=== PATIENT | male | born 1970 | race Caucasian/White ===

== ENCOUNTER 2023-06-29 18:41 | Inpatient (IN) | payer SELFPAY ==
[~2023-06-29] VITALS: Ht 185.4 cm; Wt 91.6 kg
[~2023-06-29 18:41] MED LIST: ALLP100T PO; GLYB1.253 PO; LISI1TAB6 PO; TRM50T PO
--- NOTE | 2023-06-29 19:08 | ED General ---
General Chief Complaint: General Problems/Pain Stated Complaint: PASSED OUT THIS AM, SUFFERING FROM PNEUMONIA Source of Information: Patient (PT IS LIMITED HISTORIAN), Other (COUSIN ( ARIN NEWBERRY, RN) ) History of Present Illness Date Seen by Provider: Jun 29, 2023 Time Seen by Provider: 18:53 Initial Comments PT ARRIVES VIA POV FROM HOME WITH BROTHER AND COUSIN PT BEGAN HAVING SHORTNESS OF BREATH ABOUT 3 WEEKS AGO HE WAS DX WITH PNEUMONIA AND STARTED ON LEVAQUIN 06/27/23. RX CALLED IN FOR FLAGYL YESTERDAY PT HAS HAD INCREASED INTAKE OVER THE LAST 3 WEEKS BECAUSE HE JUST HAS NOT BEEN FEELING WELL NO FEVER/SWEATS/CHILLS HAS HAD A NON-PRODUCTIVE COUGH OCCASIONALLY HAS VOMITED DUE TO COUGH NO CHEST PAIN OR PAIN WITH BREATHING SOME TIME VERY EARLY THIS MORNING ( WAS STILL DARK OUTSIDE) PT WAS IN THE SHOWER AND FELL OR PASSED OUT, HITTING HIS HEAD--HE DOES NOT RECALL ALL OF THE EVENT BUT WOKE UP ON THE FLOOR OF THE SHOWER. C/O PAIN TO HIS HEAD LEFT SHOULDER WAS HURTING, BUT NOT NOW NO NECK OR BACK PAIN NO HIP OR LEG PAIN NO DIZZINESS NO NAUSEA/VOMITING NO PARESTHESIAS OR MOTOR DEFICITS--STATES THIS BOTTOM OF HIS FEET ALWAYS FEEL TINGLY NO VISION CHANGES PT IS INSULIN DEPENDENT DIABETIC AND HAS HTN AND HX OF GOUT HAS CONTINUOUS GLUCOSE MONITOR AND BLOOD SUGARS HAVE BEEN IN 130'S-200 NORMALLY. PT IS NOT ON ASPIRIN OR BLOOD THINNER PT IS NON-SMOKER, OCCASIONALLY DRINKS ALCOHOL--NONE FOR 3 WEEKS, AND NO DRUG USE PCP: DR. MANN, HAS ALSO BEEN TO [facility] Allergies and Home Medications Allergies Coded Allergies: NKANo Known Allergies (Verified Allergy, Unknown, 01/19/06) Patient Home Medication List Home Medication List Reviewed: Yes Allopurinol (Zyloprim) 100 Mg Tab, 100 MG PO DAILY, (Reported) Entered as Reported by: NICK MCKINNON on 07/11/111309 Glyburide (Glyburide) 1.25 Mg Tablet, 1 EACH PO DAILY, (Reported) Entered as Reported by: NICK MCKINNON on 07/11/11 131 Hctz/Lisinopril (Lisinopril-Hctz 10-12.5 Mg Tab) 1 Each Tablet, 1 EACH PO DAILY, (Reported) Entered as Reported by: NICK MCKINNON on 07/11/11 1310 Tramadol Hcl (Ultram) 50 Mg Tab, 1-2 TAB PO Q8HR PRN, (Reported) Entered as Reported by: NICK MCKINNON on 07/11/11 131 Review of Systems Review of Systems Constitutional: no symptoms reported EENTM: no symptoms reported Respiratory: see HPI Cardiovascular: see HPI Gastrointestinal: no symptoms reported Genitourinary: no symptoms reported Musculoskeletal: no symptoms reported Skin: no symptoms reported Psychiatric/Neurological: See HPI Hematologic/Lymphatic: No Symptoms Reported Immunological/Allergic: no symptoms reported Past Ftjgpom-Xvlzom-Nkexoe Hx Patient Social History Tobacco Use?: No Substance use?: No Alcohol Use?: Yes Alcohol Frequency: Once in a while Past Medical History Surgeries: Yes Tonsillectomy Respiratory: No Cardiac: Yes Hypertension Neurological: No Reproductive Disorders: No Genitourinary: No Gastrointestinal: No Musculoskeletal: Yes Gout Endocrine: No HEENT: No Cancer: No Psychosocial: No Integumentary: No Blood Disorders: No Physical Exam Vital Signs Vital Signs - First Documented 06/29/23 18:53 Temp 36.8 Pulse 116 Resp 16 B/P (MAP) 185/114 (137) Pulse Ox 100 O2 Delivery OxyMask Capillary Refill : Height, Weight, BMI Height: '" Weight: lbs. oz. kg; BMI Method: General Appearance: No Apparent Distress, WD/WN, Other (DOES NOT APPEAR ILL OR TO BE IN ANY DISCOMFORT OR DISTRESS. TALKS IN FULL SENTENCES --VERY PLEASANT AND TALKATIVE. ) Neck: Full Range of Motion, Normal Inspection, Non Tender, Supple Respiratory: Chest Non Tender, No Accessory Muscle Use, No Respiratory Distress, Rales (IN RIGHT BASE) Cardiovascular: No Edema, No JVD, Tachycardia Gastrointestinal: Non Tender, Soft Back: No CVA Tenderness Extremity: Normal Capillary Refill, Normal Inspection, Normal Range of Motion, Non Tender, No Calf Tenderness, Pedal Edema (1+ BILATERALLY) Neurologic/Psychiatric: Alert, Oriented x3, No Motor/Sensory Deficits, Normal Mood/Affect, torch straightener and heater II-XII Norm as Tested Skin: Normal Color, Warm/Dry Focused Exam Sepsis Stage: Sepsis Possible Source: Pulmonary Lactate Level 06/29/23 19:14: Lactic Acid Level 1.45 Time of Focused Exam: 20:45 Respiratory: No Accessory Muscle Use, No Respiratory Distress, Rales (RIGHT BASE) Cardiovascular: No JVD, Tachycardia Capillary Refill: Less Than 3 Seconds Skin: normal color, warm/dry Lactic Acid Level Laboratory Tests Test 06/29/23 19:14 Lactic Acid Level 1.45 MMOL/L (0.50-2.00) Within 3hrs of presentation: Admin fluids, Admin ABX, Blood cultures prior to ABX's, Focus exam, Lactate level Progress/Results/Core Measures Suspected Sepsis SIRS Temperature: Pulse: Respiratory Rate: Laboratory Tests 06/29/23 19:05: White Blood Count 13.3H Blood Pressure / Mean: 06/29/23 19:14: Lactic Acid Level 1.45 Laboratory Tests 06/29/23 19:05: Creatinine 0.82, INR Comment 1.2, Platelet Count 463H, Total Bilirubin 0.3 Results/Orders Lab Results Laboratory Tests Test 06/29/23 19:05 06/29/23 19:13 06/29/23 19:14 06/29/23 20:30 Range/Units White Blood Count 13.3 H 4.3-11.0 10^3/uL Red Blood Count 3.70 L 4.30-5.52 10^6/uL Hemoglobin 9.8 L 13.3-17.7 g/dL Hematocrit 33 L 40-54 % Mean Corpuscular Volume 89 80-99 fL Mean Corpuscular Hemoglobin 27 25-34 pg Mean Corpuscular Hemoglobin Concent 30 L 32-36 g/dL Red Cell Distribution Width 14.7 H 10.0-14.5 % Platelet Count 463 H 130-400 10^3/uL Mean Platelet Volume 8.3 L 9.0-12.2 fL Immature Granulocyte % (Auto) 1 % Neutrophils (%) (Auto) 71 42-75 % Lymphocytes (%) (Auto) 18 12-44 % Monocytes (%) (Auto) 7 0-12 % Eosinophils (%) (Auto) 3 0-10 % Basophils (%) (Auto) 0 0-10 % Neutrophils # (Auto) 9.5 H 1.8-7.8 10^3/uL Lymphocytes # (Auto) 2.4 1.0-4.0 10^3/uL Monocytes # (Auto) 0.9 0.0-1.0 10^3/uL Eosinophils # (Auto) 0.4 H 0.0-0.3 10^3/uL Basophils # (Auto) 0.1 0.0-0.1 10^3/uL Immature Granulocyte # (Auto) 0.1 0.0-0.1 10^3/uL Erythrocyte Sedimentation Rate 107 H 0-30 MM/HR Prothrombin Time 14.9 H 12.2-14.7 SEC INR Comment 1.2 0.8-1.4 Activated Partial Thromboplast Time 43 H 24-35 SEC D-Dimer 2.67 H 0.00-0.49 UG/ML Venous Blood pH 7.37 7.31-7.41 Venous Blood Partial Pressure CO2 46 40-52 MMHG Venous Blood HCO3 26 22-28 MMOL/L Sodium Level 139 135-145 MMOL/L Potassium Level 3.8 3.6-5.0 MMOL/L Chloride Level 106 98-107 MMOL/L Carbon Dioxide Level 23 21-32 MMOL/L Anion Gap 10 5-14 MMOL/L Blood Urea Nitrogen 11 7-18 MG/DL Creatinine 0.82 0.60-1.30 MG/DL Estimat Glomerular Filtration Rate 106 BUN/Creatinine Ratio 13 Glucose Level 152 H 70-105 MG/DL Calcium Level 9.5 8.5-10.1 MG/DL Corrected Calcium 10.2 H 8.5-10.1 MG/DL Magnesium Level 2.3 1.6-2.4 MG/DL Total Bilirubin 0.3 0.1-1.0 MG/DL Aspartate Amino Transf (AST/SGOT) 22 5-34 U/L Alanine Aminotransferase (ALT/SGPT) 15 0-55 U/L Alkaline Phosphatase 85 40-136 U/L Total Creatine Kinase 69 30-200 U/L Creatine Kinase MB 1.4 <6.6 NG/ML Myoglobin 49.4 10.0-92.0 NG/ML Troponin I 0.030 H <0.028 NG/ML C-Reactive Protein High Sensitivity 1.46 H 0.00-0.50 MG/DL B-Type Natriuretic Peptide 242.4 H <100.0 PG/ML Total Protein 8.8 H 6.4-8.2 GM/DL Albumin 3.1 L 3.2-4.5 GM/DL Beta-Hydroxybutyrate (Chem panel) 0.03 0.00-0.27 MMOL/L Influenza Type A (RT-PCR) Not Detected Not Detecte Influenza Type B (RT-PCR) Not Detected Not Detecte SARS-CoV-2 RNA (RT-PCR) Not Detected Not Detecte Lactic Acid Level 1.45 0.50-2.00 MMOL/L Urine Color YELLOW Urine Clarity CLEAR Urine pH 7.0 5-9 Urine Specific [employer] 1.020 1.016-1.022 Urine Protein NEGATIVE NEGATIVE Urine Glucose (UA) NEGATIVE NEGATIVE Urine Ketones NEGATIVE NEGATIVE Urine Nitrite NEGATIVE NEGATIVE Urine Bilirubin NEGATIVE NEGATIVE Urine Urobilinogen 0.2 < = 1.0 MG/DL Urine Leukocyte Esterase NEGATIVE NEGATIVE Urine RBC (Auto) NEGATIVE NEGATIVE Urine RBC NONE /HPF Urine WBC RARE /HPF Urine Squamous Epithelial Cells RARE /HPF Urine Crystals NONE /LPF Urine Bacteria TRACE /HPF Urine Casts NONE /LPF Urine Mucus NEGATIVE /LPF Urine Culture Indicated NO My Orders Orders - BLANCHE BLANK DO Ed Iv/Invasive Line Start (06/29/23 19:00) Ekg Tracing (06/29/23:00) O2 (06/29/23:00) Monitor-Rhythm Ecg Trace Only (06/29/23:) Ct Head/Cervical Spine Wo (06/29/23:00) Chest Pa/Lat (2 View) (06/29/23:00) Bnp [place] (06/29/23:00) Cbc With Automated Diff (06/29/23:) Comprehensive Metabolic Panel (06/29/23:00) Creatine Kinase (06/29/23:00) Creatine Kinase Mb (06/29/23:00) Hs C Reactive Protein (06/29/23:00) Fibrin Degradation Products (06/29/23:) Lactic Acid Analyzer (06/29/23:) Magnesium (06/29/23:) Protime With Inr (06/29/23:) Partial Thromboplastin Time (06/29/23:00) Ua Culture If Indicated (06/29/23:) Erythrocyte Sedimentation Rate (06/29/23:00) Myoglobin Serum (06/29/23:00) Troponin I [place] (06/29/23:00) Ct Tre[place] Chest/Noang Abd-Pelv W (06/29/23:00) Venous Blood Gas (9/13/23 19:00) Beta Hydroxybutyrate (06/29/23 19:00) Hemoglobin A1c (06/29/23 19:00) Covid 19 Inhouse Test (06/29/23 19:04) Influenza A And B By Pcr (06/29/23 19:04) Iohexol Injection (Omnipaque 350 Mg/Ml 1 (06/29/23 20:00) Ns (Ivpb) 100 Ml (Sodium Chloride 0.9% 1 (06/29/23 20:00) Meropenem Injection (Meropenem Injecti (06/29/23 20:45) Vancomycin Injection (Vancomycin Injecti (06/29/23 20:45) Ed Admission (Communication) (06/29/23 20:46) Ed Iv/Invasive Line Start (06/29/23 20:46) Ns Iv 1000 Ml (Ns Iv 1000 Ml) (06/29/23 21:00) Medications Given in ED Current Medications Medications Dose Ordered Sig/Mena Route Start Time Stop Time Status Last Admin Dose Admin Meropenem 500 mg/ Sodium Chloride 100 ml @ 200 mls/hr ONCE ONCE IV 06/29/23 20:45 06/29/23 21:14 DC 06/29/23 21:02 200 MLS/HR Vital Signs/I&O 06/29/23 06/29/23 18:53 21:50 Temp 36.8 Pulse 116 105 Resp 16 20 B/P (MAP) 185/114 (137) 167/101 Pulse Ox 100 98 O2 Delivery OxyMask Room Air Capillary Refill : Progress Note : Progress Note VITALS ON ARRIVAL: TEMP 36.8, HR 116, RR 16, BP 185/114, O2 SAT 100% ON ROOM AIR SEPSIS PROTOCOL INITIATED PPE WORN AND PLACED IN ISOLATION ROOM GIVEN: -IV FLUIDS -ANTIBIOTICS LABS: -CBC WITH WBC 13.3, HGB 9.8, PLT 463,000 -CMP WITH NORMAL ELECTROLYTES, GLU 152 -TROPONIN 0.030 -BNP 242 -AMYLASE/LIPASE NORMAL -MG 2.3 -SED RATE 107 -CRP 1.46 -LACTIC ACID 1.45 -BETA HYDROXYBUTYRATE 0.03 -VENOUS BLOOD GAS--PT 7.37, PCO2 46, HCOC 26 -PT 14.9, PTT 43, INR 1.2 -D-DIMER 2.67 -COVID/FLU NEGATIVE -UA CLEAR EKG SHOWS SINUS TACH AND NON-SPECIFIC CHANGES CXR SHOWS PNEUMONIA WITH FLUID COLLECTION CT HEAD/CERVICAL SPINE UNREMARKABLE CT CHEST ANGIOGRAM SHOWS POSSIBLE CAVITATING PNEUMONIA OR EMPYEMA NO DETERIORATION IN PT'S CONDITION NO COUGH NO DYSPNEA NO HYPOXIA NO FEVER DURING ER STAY VITALS STABLE, AFEBRILE DISCUSSED TEST RESULTS, NEED FOR ADMIT AND PT IS AGREEABLE TO PLAN REVIEWED PRIOR RECORDS, INCLUDING ADMIT/H&P/CONSULTS/DISCHARGE SUMMARY, TESTS/PROCEDURES ECG Initial ECG Impression Date: Jun 29, 2023 Initial ECG Impression Time: 19:34 Initial ECG Rate: 103 Initial ECG Rhythm: S.Tach Initial ECG Intervals LA 206 QRS 98 QT/QTC 339/399 Initial ECG Impression: Nonspecific Changes Initial ECG Comparisson: No Previous ECG Available Comment INTERPRETED BY ME Diagnostic Imaging Comments CXR--PER RADIOLOGIST REPORT AT 2107 FINDINGS: An air-fluid level within the right lung is compatible with the cavitary process demonstrated on the prior CT exam. This again is unclear if this is within the lung or the pleural space. There are infiltrates present at the right lung base but the left lung is clear. Heart size is normal. IMPRESSION: Air-fluid level within the right lung that may be within the lung, itself, or within the pleural space. This may reflect a cavitating pneumonia or could be secondary to an empyema. There are pulmonary opacities present at the right base compatible with pneumonia. CT HEAD/CERVICAL SPINE--PER RADIOLOGIST REPORT AT 2057 No comparison available. FINDINGS: CT of the head demonstrates no evidence of an acute intracranial abnormality. There are no findings of intracranial hemorrhage. There is no abnormal extra-axial collection. Morse-white matter differentiations are well-maintained. There are no findings of edema. The basilar cisterns are patent. There is no acute posterior fossa abnormality. The mastoid air cells are clear. The paranasal sinuses demonstrate no air-fluid level. The orbital contents are normal. There is no acute calvarial abnormality. Cervical spine demonstrates advanced multilevel cervical degenerative disc disease. There is multilevel facet arthropathy. Alignment is normal. Craniocervical junction relationships are maintained. The facets are normally aligned. There is no facet joint or disc space widening. There is severe multilevel disc space height loss with multiple endplate spurs but there are no CT findings of an acute cervical spine fracture. The soft tissues of the neck demonstrate no acute process. Lung apices are clear. IMPRESSION: 1. No CT evidence of an acute intracranial abnormality. 2. No calvarial fracture 3. Advanced degenerative disc disease, facet arthropathy and uncovertebral spurring throughout the cervical spine. There are, however, no findings of an acute cervical spine fracture or traumatic malalignment. CT CHEST ANGIOGRAM / ABDOMEN-PELVIS--PER RADIOLOGIST REPORT AT 2115 FINDINGS: There are no CT radiographic findings of a pulmonary artery filling defect or embolism. There is no right ventricular strain. The thoracic aorta demonstrates no finding of aneurysm or dissection. Heart size is normal. There is no pericardial collection. There is a right-sided pleural effusion. There is a gas and air fluid containing lesion within the right lung which lies along the posterior aspect of the lung posterior to the margins of the major fissure. It is difficult to completely determine if this is in the pleural space or within the lung, itself. This could reflect a cavitating region of pneumonia but may be within the pleural space and relate to sequela of an empyema. There is adjacent right lower lobe and posterior right upper lobe airspace consolidation. The left lung appears clear. The liver demonstrates no evidence of a liver laceration or adjacent fluid or blood. The gallbladder is nondistended. There is no biliary dilatation. Pancreas and spleen are normal. There is no perisplenic fluid. There is no adrenal hematoma. There is no renal laceration. There is no bowel obstruction. There is no abnormal bowel thickening. The appendix is normal. There is uncomplicated diverticulosis. There is no free fluid in the pelvis. The urinary bladder is unremarkable. There is no CT finding of an acute fracture. Within the chest, there is no evidence of an acute rib fracture. There is no fracture evident of the sternum or manubrium. There is no glenohumeral joint dislocation or finding of a clavicular or scapular fracture. There is no acute pelvic fracture. There is no hip dislocation. Alignment of the thoracic and lumbar spine is normal. There are features of a diffuse idiopathic skeletal hyperostosis but no acute thoracic or lumbar fracture demonstrated. IMPRESSION: 1. No CT evidence of an acute traumatic injury within the chest, abdomen or pelvis. 2. No finding of pulmonary embolism or acute aortic syndrome. 3. Air-fluid level with a gas and air containing collection within the posterior right lung that is difficult to determine that this is within the lung, itself, or in the pleural space. Considerations include a cavitating pneumonia or possibly sequela of a pleural empyema. There is adjacent airspace consolidation compatible with known pneumonia within the posterior right upper lobe and at the right lung base. 4. No acute process evident in the abdomen or pelvis. Reviewed: Reviewed by Me Departure Communication (Admissions) 2039--SPOKE WITH DR. MCFARLANE, ACCEPTS PT FOR ADMIT. SHE WILL DO ADMIT ORDERS. Impression Primary Impression: Sepsis Additional Impressions: Syncope Closed head injury IDDM (insulin dependent diabetes mellitus) HTN (hypertension) Hx of gout Pneumonia POSSIBLE EMPYEMA Failure of outpatient treatment Disposition: ADMITTED INPATIENT Condition: Stable Admissions Decision to Admit Reason: Admit from ER (General) Decision to Admit/Date: Jun 29, 2023 Time/Decision to Admit Time: 20:40 Departure-Patient Inst. Referrals: EDWIN MANN MD (PCP) Primary Care Physician [facility] (Family) Primary Care Physician BLANCHE BLANK DO Jun 29, 2023 19:07
[2023-06-29 19:14] LABS: BASOPHILS # (AUTO) 0.1 10^3/uL (0.0-0.1); BASOPHILS % (AUTO) 0 % (0-10); EOSINOPHILS # (AUTO) 0.4 10^3/uL (0.0-0.3); EOSINOPHILS % (AUTO) 3 % (0-10); HEMATOCRIT 33 % (40-54); HEMOGLOBIN 9.8 g/dL (13.3-17.7); LYMPHOCYTES # (AUTO) 2.4 10^3/uL (1.0-4.0); LYMPHOCYTES % (AUTO) 18 % (12-44); MEAN CORPUSCULAR HEMOGLOBIN 27 pg (25-34); MEAN CORPUSCULAR HGB CONC 30 g/dL (32-36); MEAN CORPUSCULAR VOLUME 89 fL (80-99); MEAN PLATELET VOLUME 8.3 fL (9.0-12.2); MONOCYTES # (AUTO) 0.9 10^3/uL (0.0-1.0); MONOCYTES % (AUTO) 7 % (0-12); NEUTROPHILS # (AUTO) 9.5 10^3/uL (1.8-7.8); NEUTROPHILS % (AUTO) 71 % (42-75); PLATELET COUNT 463 10^3/uL (130-400); WHITE BLOOD COUNT 13.3 10^3/uL (4.3-11.0)
[2023-06-29 19:30] LABS: INR 1.2 (0.8-1.4); PROTHROMBIN TIME PATIENT 14.9 SEC (12.2-14.7)
[2023-06-29 19:32] LABS: ALBUMIN 3.1 GM/DL (3.2-4.5)
[2023-06-29 19:33] LABS: CALCIUM 9.5 MG/DL (8.5-10.1)
[2023-06-29 19:35] LABS: TOTAL PROTEIN 8.8 GM/DL (6.4-8.2)
[2023-06-29 19:37] LABS: BILIRUBIN,TOTAL 0.3 MG/DL (0.1-1.0)
[2023-06-29 19:38] LABS: CREATININE SERUM 0.82 MG/DL (0.60-1.30)
[2023-06-29 19:41] LABS: MAGNESIUM 2.3 MG/DL (1.6-2.4)
[2023-06-29 19:46] LABS: ERYTHROCYTE SEDIMENTATION RATE 107 MM/HR (0-30)
[2023-06-29 19:49] LABS: CREATINE KINASE MB 1.4 NG/ML (<6.6)
[2023-06-29 20:00] LABS: POTASSIUM 3.8 MMOL/L (3.6-5.0)
[2023-06-29] MEDS ORDERED: IOHEXOL 350 MG/ML 100 ML (OMNIPAQUE 350) VIAL IV ONE (20:00)
[2023-06-29] MEDS ORDERED: NS 100 ML (IVPB) BAG IV ONE (20:00)
[2023-06-29 20:04] LABS: FIBRIN DEGRADATION PRODUCTS 2.67 UG/ML (0.00-0.49)
--- NOTE | 2023-06-29 20:40 | Diagnostic Imaging Report ---
PROCEDURE: CT head and CT cervical spine without contrast. TECHNIQUE: Multiple contiguous axial images were obtained through the brain and cervical spine without the use of intravenous contrast. Sagittal and coronal reformations through the cervical spine were then performed. Auto Exposure Controls were utilized during the CT exam to meet ALARA standards for radiation dose reduction. INDICATION: Syncope. Fall. No comparison available. FINDINGS: CT of the head demonstrates no evidence of an acute intracranial abnormality. There are no findings of intracranial hemorrhage. There is no abnormal extra-axial collection. Morse-white matter differentiations are well-maintained. There are no findings of edema. The basilar cisterns are patent. There is no acute posterior fossa abnormality. The mastoid air cells are clear. The paranasal sinuses demonstrate no air-fluid level. The orbital contents are normal. There is no acute calvarial abnormality. Cervical spine demonstrates advanced multilevel cervical degenerative disc disease. There is multilevel facet arthropathy. Alignment is normal. Craniocervical junction relationships are maintained. The facets are normally aligned. There is no facet joint or disc space widening. There is severe multilevel disc space height loss with multiple endplate spurs but there are no CT findings of an acute cervical spine fracture. The soft tissues of the neck demonstrate no acute process. Lung apices are clear. IMPRESSION: 1. No CT evidence of an acute intracranial abnormality. 2. No calvarial fracture 3. Advanced degenerative disc disease, facet arthropathy and uncovertebral spurring throughout the cervical spine. There are, however, no findings of an acute cervical spine fracture or traumatic malalignment. Dictated by: Dictated on workstation # [id number]
[2023-06-29] MEDS ORDERED: MEROPENEM INJECTION 500 MG in NS (IVPB) 100 ML 100 ML IV ONE (20:45)
[2023-06-29 20:51] LABS: BACTERIA,URINE TRACE /HPF; BILIRUBIN,URINE NEGATIVE (NEGATIVE); CLARITY,URINE CLEAR; COLOR,URINE YELLOW; GLUCOSE, URINE (UA) NEGATIVE (NEGATIVE); KETONES,URINE NEGATIVE (NEGATIVE); LEUKOCYTE ESTERASE ,URINE NEGATIVE (NEGATIVE); NITRITE,URINE NEGATIVE (NEGATIVE); PROTEIN,URINE NEGATIVE (NEGATIVE); SQUAMOUS EPITHELIAL CELL,UR RARE /HPF; WBC,URINE RARE /HPF
[2023-06-29] MEDS ORDERED: NS IV 1000 ML 1,000 ML IV SCH (21:00)
--- NOTE | 2023-06-29 21:05 | Diagnostic Imaging Report ---
INDICATION: Dyspnea. Recent pneumonia. COMPARISON: CT examination from the same day. FINDINGS: An air-fluid level within the right lung is compatible with the cavitary process demonstrated on the prior CT exam. This again is unclear if this is within the lung or the pleural space. There are infiltrates present at the right lung base but the left lung is clear. Heart size is normal. IMPRESSION: Air-fluid level within the right lung that may be within the lung, itself, or within the pleural space. This may reflect a cavitating pneumonia or could be secondary to an empyema. There are pulmonary opacities present at the right base compatible with pneumonia. Dictated by: Dictated on workstation # [id number]
--- NOTE | 2023-06-29 21:13 | Diagnostic Imaging Report ---
INDICATION: Trauma. Syncope. Fall. TECHNIQUE: CTA chest, abdomen and pelvis. Thin axial sections through the chest, abdomen and pelvis are obtained following intravenous contrast bolus. Multiplanar MIP images were reconstructed and reviewed. All CT scans use one or more of the following dose optimizing techniques: automated exposure control, MA and/or KvP adjustment based on patient size and exam type or iterative reconstruction. FINDINGS: There are no CT radiographic findings of a pulmonary artery filling defect or embolism. There is no right ventricular strain. The thoracic aorta demonstrates no finding of aneurysm or dissection. Heart size is normal. There is no pericardial collection. There is a right-sided pleural effusion. There is a gas and air fluid containing lesion within the right lung which lies along the posterior aspect of the lung posterior to the margins of the major fissure. It is difficult to completely determine if this is in the pleural space or within the lung, itself. This could reflect a cavitating region of pneumonia but may be within the pleural space and relate to sequela of an empyema. There is adjacent right lower lobe and posterior right upper lobe airspace consolidation. The left lung appears clear. The liver demonstrates no evidence of a liver laceration or adjacent fluid or blood. The gallbladder is nondistended. There is no biliary dilatation. Pancreas and spleen are normal. There is no perisplenic fluid. There is no adrenal hematoma. There is no renal laceration. There is no bowel obstruction. There is no abnormal bowel thickening. The appendix is normal. There is uncomplicated diverticulosis. There is no free fluid in the pelvis. The urinary bladder is unremarkable. There is no CT finding of an acute fracture. Within the chest, there is no evidence of an acute rib fracture. There is no fracture evident of the sternum or manubrium. There is no glenohumeral joint dislocation or finding of a clavicular or scapular fracture. There is no acute pelvic fracture. There is no hip dislocation. Alignment of the thoracic and lumbar spine is normal. There are features of a diffuse idiopathic skeletal hyperostosis but no acute thoracic or lumbar fracture demonstrated. IMPRESSION: 1. No CT evidence of an acute traumatic injury within the chest, abdomen or pelvis. 2. No finding of pulmonary embolism or acute aortic syndrome. 3. Air-fluid level with a gas and air containing collection within the posterior right lung that is difficult to determine that this is within the lung, itself, or in the pleural space. Considerations include a cavitating pneumonia or possibly sequela of a pleural empyema. There is adjacent airspace consolidation compatible with known pneumonia within the posterior right upper lobe and at the right lung base. 4. No acute process evident in the abdomen or pelvis. Dictated by: Dictated on workstation # [id number]
[2023-06-29] MEDS: VANCOMYCIN INJECTION 1,000 MG in NS (IVPB) 250 ML 250 ML IV SCH ×2 (21:35→22:46)
[2023-06-29 22:00] VITALS: BP 179/102
[2023-06-29] MEDS ORDERED: diphenhydrAMINE 25 MG TABLET PO PRN (22:00)
[2023-06-29] MEDS ORDERED: LORazepam 0.5 MG TABLET PO PRN (22:00)
[2023-06-29] MEDS ORDERED: MELATONIN 3 MG TABLET PO PRN (22:00)
[2023-06-29] MEDS ORDERED: LACTULOSE SYRUP 10GM/15ML 30ML UDC PO PRN (22:00)
[2023-06-29] MEDS ORDERED: VANCOMYCIN INJECTION 0.1 MG in NS (IVPB) 250 ML 250 ML IV SCH (22:00)
[2023-06-29] MEDS ORDERED: hydrALAZINE INJECTION 20 MG/ML VIAL IV PRN (22:00)
[2023-06-29] MEDS ORDERED: ONDANSETRON 4 MG ORAL DISSOLVE TABLET PO PRN (22:00)
[2023-06-29] MEDS ORDERED: MILK OF MAGNESIA 400 MG/5 ML 30 ML UDC PO PRN (22:00)
[2023-06-29] MEDS ORDERED: diphenhydrAMINE INJ 50 MG/ML VIAL IVP PRN (22:00)
[2023-06-29] MEDS ORDERED: oxyCODONE IMMEDIATE RELEASE 5 MG TABLET PO PRN (22:00)
[2023-06-29] MEDS ORDERED: NS IV 500 ML 500 ML IV PRN (22:00)
[2023-06-29] MEDS ORDERED: ONDANSETRON INJECTION 4 MG/2 ML (SDV) IV PRN (22:00)
[2023-06-29] MEDS ORDERED: BISACODYL 10 MG SUPPOSITORY PR PRN (22:00)
[2023-06-29] MEDS ORDERED: ACETAMINOPHEN 325 MG TABLET PO PRN (22:00)
[2023-06-29] MEDS ORDERED: morphine INJ 4 MG/ML 1 ML (VIAL/SYRINGE) IV PRN (22:00)
[2023-06-29] MEDS ORDERED: ANTACID SUSPENSION 30 ML UDC PO PRN (22:00)
[2023-06-29] MEDS ORDERED: cloNIDine 0.1 MG TABLET PO PRN (22:00)
[2023-06-29] MEDS ORDERED: CALCIUM CARBONATE 500 MG CHEW TABLET PO PRN (22:00)
--- NOTE | 2023-06-29 22:11 | Tele-ICU Progress Note ---
Subjective Date Seen by a Provider: Jun 29, 2023 Subjective/Events-last exam This virtual visit was conducted using real time audio/video. Thank you for asking us to see this patient for critical care services due to pna, sepsis, pleural effusion and empyema versus posterior lung abscess. PE: VSS. O2 sat 98% on RA HEENT: No obvious masses, adenopathy or JVD. Chest:rales R base. CV: RRR S1 S2 No murmur or added sounds. Abd: Non-tender. Bowel sounds Y. : Unremarkable. Cervantes N. COUNSELOR EDUCATION PROFESSOR/psychiatric: Grossly intact. No obvious focal findings. Extremities: 1+ edema. Capillary refill < 3 seconds. Skin: unremarkable. WCC 13.3, Trop 0.03. Decreased Hb9.8. BG: . CTAC: R infilts., pleural effusion and air-fluid level c/w empyema versus posterior lung abscess.. Available chart/ vitals / labs / images reviewed. Video assessment done using teleICU camera, rest of exam as per RN. A/P: Critical Care: critically ill patient. Cont. IVF, abx. Discussed with NORBERT Ayala. Asked RN to reach out to eICU if any questions or concerns later. Time spent with patient/coordination of care with other health professionals (mins): 22 Sepsis Event Evaluation Height, Weight, BMI Height: '" Weight: lbs. oz. kg; 28.00 BMI Method: Focused Exam Lactate Level 06/29/23 19:14: Lactic Acid Level 1.45 Time of Focused Exam: 20:45 Lactic Acid Level Laboratory Tests Test 06/29/23 19:14 Lactic Acid Level 1.45 MMOL/L (0.50-2.00) Exam Exam Patient acknowledged, consented, and participated in this virtual visit which was conducted using real time audio/video Vital Signs Date Time Temp Pulse Resp B/P (MAP) Pulse Ox O2 Delivery O2 Flow Rate FiO2 06/29/23 21:50 105 20 167/101 98 Room Air 06/29/23 18:53 36.8 116 16 185/114 (137) 100 OxyMask Height & Weight Height: '" Weight: lbs. oz. kg; 28.00 BMI Method: General Appearance: No Apparent Distress, WD/WN, Other (DOES NOT APPEAR ILL OR TO BE IN ANY DISCOMFORT OR DISTRESS. TALKS IN FULL SENTENCES --VERY PLEASANT AND TALKATIVE. ) Neck: Full Range of Motion, Normal Inspection, Non Tender, Supple Respiratory: No Accessory Muscle Use, No Respiratory Distress, Rales (RIGHT BASE) Cardiovascular: No JVD, Tachycardia Capillary Refill: Less Than 3 Seconds Extremity: Normal Capillary Refill, Normal Inspection, Normal Range of Motion, Non Tender, No Calf Tenderness, Pedal Edema (1+ BILATERALLY) Neurologic/Psychiatric: Alert, Oriented x3, No Motor/Sensory Deficits, Normal Mood/Affect, lathe mechanic II-XII Norm as Tested Skin: Normal Color, Warm/Dry Results Lab Laboratory Tests 06/29/23 19:05 Assessment/Plan Assessment/Plan See free text. Critical Care: Critically Ill Patient KATIE ROSSI MD Jun 29, 2023 22:11
[2023-06-29 22:15] VITALS: BP 166/95
[2023-06-29 22:30] VITALS: BP 152/79
[2023-06-29 22:45] VITALS: BP 120/107
[2023-06-29 22:47] VITALS: BP 185/114
[2023-06-29] MEDS ORDERED: METR-145 PO (23:09)
[2023-06-29] MEDS ORDERED: [UNRECOGNIZED DRUG - CODE] SQ (23:09)
[2023-06-29] MEDS ORDERED: LISI1TAB48 PO (23:09)
[2023-06-29] MEDS ORDERED: EMPA10TA PO (23:09)
[2023-06-29] MEDS ORDERED: LEVO750T PO (23:09)
[2023-06-29] MEDS ORDERED: INSU100I55 SQ (23:09)
[2023-06-29 23:15] VITALS: BP_SYST 122; BP_SYST 147; BP_DIAS 64; BP_DIAS 87
[2023-06-29] MEDS ORDERED: RT-ALBUTEROL SULF 2.5 MG/3 ML PRE-MIX VIAL INH PRN (23:15)
[2023-06-29] MEDS: ENOXAPARIN 100 MG/1 ML SYRINGE SC SCH (23:39)
[2023-06-30] VITALS (11 sets, daily range): BP systolic 113–168; BP diastolic 74–114
[2023-06-30] MEDS: MEROPENEM INJECTION 500 MG in NS (IVPB) 100 ML 100 ML IV SCH ×4 (03:14→20:56)
[2023-06-30 04:56] LABS: BASOPHILS % (AUTO) 0 % (0-10); EOSINOPHILS # (AUTO) 0.3 10^3/uL (0.0-0.3); EOSINOPHILS % (AUTO) 3 % (0-10); HEMATOCRIT 31 % (40-54); HEMOGLOBIN 9.5 g/dL (13.3-17.7); LYMPHOCYTES % (AUTO) 21 % (12-44); MEAN CORPUSCULAR HEMOGLOBIN 27 pg (25-34); MEAN CORPUSCULAR HGB CONC 31 g/dL (32-36); MEAN CORPUSCULAR VOLUME 87 fL (80-99); MEAN PLATELET VOLUME 8.4 fL (9.0-12.2); MONOCYTES # (AUTO) 0.6 10^3/uL (0.0-1.0); MONOCYTES % (AUTO) 6 % (0-12); NEUTROPHILS # (AUTO) 6.5 10^3/uL (1.8-7.8); NEUTROPHILS % (AUTO) 68 % (42-75); PLATELET COUNT 424 10^3/uL (130-400); WHITE BLOOD COUNT 9.5 10^3/uL (4.3-11.0)
[2023-06-30 05:08] LABS: ALBUMIN 2.7 GM/DL (3.2-4.5); POTASSIUM 3.7 MMOL/L (3.6-5.0)
[2023-06-30 05:09] LABS: CALCIUM 8.7 MG/DL (8.5-10.1)
[2023-06-30 05:11] LABS: TOTAL PROTEIN 7.8 GM/DL (6.4-8.2)
[2023-06-30 05:13] LABS: BILIRUBIN,TOTAL 0.3 MG/DL (0.1-1.0)
[2023-06-30 05:14] LABS: CREATININE SERUM 0.77 MG/DL (0.60-1.30); PHOSPHORUS 3.9 MG/DL (2.3-4.7)
[2023-06-30] MEDS: POTASSIUM CL 10MEQ/50ML IVPB 50 ML IV SCH (05:17)
[2023-06-30 05:18] LABS: MAGNESIUM 2.2 MG/DL (1.6-2.4)
[2023-06-30] MEDS: POTASSIUM CHLORIDE 20 MEQ TABLET PO SCH (05:18)
[2023-06-30] MEDS: inSUlin ASPART 1 UNIT/0.01 ML (PER UNIT) SC SCH ×4 (05:18→20:58)
[2023-06-30] MEDS: MAGNESIUM 1 GM/100 ML IVPB 100 ML IV SCH (05:19)
[2023-06-30] MEDS ORDERED: POTASSIUM CHLORIDE 20 MEQ TABLET PO ONE (06:00)
[2023-06-30] MEDS: VANCOMYCIN 1500MG/300ML PREMIX IV SCH ×2 (07:55→20:55)
[2023-06-30] MEDS ORDERED: RT-ALBUTEROL SULF 2.5 MG/3 ML PRE-MIX VIAL INH SCH (08:00)
[2023-06-30] MEDS: DOCUSATE SODIUM 100 MG CAPSULE PO SCH ×2 (08:16→20:58)
[2023-06-30] MEDS: SENNOSIDES 8.6 MG TABLET PO SCH ×2 (08:16→20:59)
--- NOTE | 2023-06-30 08:59 | Diagnostic Imaging Report ---
HISTORY: Pneumonia. TECHNIQUE: Frontal view of the chest. COMPARISON: 06/29/2023 FINDINGS: There are airspace opacities in the right lung, particularly at the right lung base and perihilar region. Aeration has overall decreased since the prior study. There is a small amount of fluid along the minor fissure. No large layering effusion is seen at the right lung base. The left lung is clear. No pneumothorax is seen. The cardiac silhouette appears stable in size. IMPRESSION: 1. Airspace opacities in the right lung appear mildly increased since the prior study. 2. Small effusion along the right minor fissure. Dictated by: Dictated on workstation # [id number]
--- NOTE | 2023-06-30 09:13 | Diagnostic Imaging Report ---
PROCEDURE: US Venous Lower Ext Remigio. INDICATION: Elevated D-dimer. Recent trauma, fall, syncope, pain. TECHNIQUE: Multiple real-time grayscale images were obtained over the bilateral lower extremities in various projections. Additional duplex Doppler and color Doppler images were also obtained. CORRELATION STUDY: None FINDINGS: RIGHT LOWER EXTREMITY: Color and grayscale sonographic images demonstrate no intraluminal defect within the visualized portion of the common femoral, superficial femoral and/or popliteal veins to suggest thrombus formation. These vessels demonstrate normal response to compression and augmentation. LEFT LOWER EXTREMITY: Findings are positive for what appears to be partially occlusive clot through large portion of the left leg. Clot originates within the veins of the calf extending to the popliteal vein and on into the more central aspect of femoral vein of the thigh. Common femoral vein unremarkable. Left lower extremity soft tissue edema is also noted. IMPRESSION: 1. Negative for deep venous thrombosis of the right leg. 2. POSITIVE for deep venous thrombosis left leg with partially occlusive clot residing within the calf and extending into the proximal thigh. Findings were relayed by the afternoon nanny at time of imaging. Dictated by: Dictated on workstation # [id number]
[2023-06-30] MEDS: ENOXAPARIN 100 MG/1 ML SYRINGE SC SCH (09:59)
--- NOTE | 2023-06-30 11:26 | Consultation-Cardiology ---
HPI-Cardiology Cardiology Consultation: Date of Consultation 06/30/23 Date of Admission Attending Physician [place] Admitting Physician Admitting Physician: Digna Soto DO Attending Physician: Digna Soto DO Consulting Physician JAMAR RADER MD HPI: Time Seen by a Provider: 10:30 53-year-old gentleman with a history of insulin-dependent diabetes, hypertension, gout who presented for evaluation of shortness of breath over the past 3 weeks. Patient states that he initially developed shortness of breath 3 weeks prior. He went to urgent care and was diagnosed with pneumonia. He was started on Levaquin. He then noted that he did not feel like his symptoms were improving and went back and was ultimately started on Flagyl. He states that he continues to be dyspneic and fatigued but remained active and did not slow down. He reports intermittent nausea nonproductive cough and decreased p.o. intake. He denies fevers and chills. Denies any chest discomfort or palpitations. Prior to arrival, he was at home. He recently taken a shower and got out and at some point woke up to find himself on the floor. He does not remember falling. He hit his head and hurt his shoulder. Upon arrival here a chest CTA was performed and was negative for PE but demonstrated cavitating pneumonia or pleural empyema. Head CT was negative for any acute intracranial process. He denies any pain and or swelling of the lower extremities but was found to have left lower extremity unilateral edema. DVT ultrasound was performed and came back positive for DVT of the left lower extremity he denies any recent travel. He denies any recent flights. He denies any trauma to the area or recent surgeries. He denies any recently new restart of medications other than the antibiotics. He comments that he had no pain and did not notice any swelling in that left lower extremity as well. Labs are notable for LFTs within normal limits. Flu a and B are negative. COVID-negative. Creatinine 0.8. A1c is pending. White blood cell count is gone from 13.3 down to 9.5 with anti-infective initiation. Hemoglobin and hematocrit 9.5/31. BNP is mildly elevated at 242 and troponin is gone from 0.03-0.05. Review of Systems-Cardiology Review of Systems Other comments All systems were reviewed and are negative except for what is been described in HPI All Other Systems Reviewed Negative Unless Noted: Yes [id number] Hx Patient Social History Smoking Status: Never a Smoker Alcohol Use?: Yes (1-2 beers per week) Pt feels they are or have been: No Past Medical History PMH As described under Assessment. Family Medical History Family Medical History: Mother with cancer Allergies and Home Medications Allergies Coded Allergies: NKANo Known Allergies (Verified Allergy, Unknown, 01/19/06) Patient Home Medication List Home Medication List Reviewed: Yes Empagliflozin (Jardiance) 10 Mg Tablet, 10 MG PO DAILY, (Reported) Entered as Reported by: JOSELYN RONDON on 06/29/232308 Last Action: New Order Insulin Aspart (Insulin Aspart Flexpen) 100 Unit/Ml (3 Ml) Insuln.pen, 8 UNIT SQ DAILY, (Reported) Entered as Reported by: JOSELYN RONDON on 06/29/232308 Last Action: Edited Insulin Degludec (Insulin Degludec Pen (U-100)) 100 Unit/Ml (3 Ml) Insuln.pen, 20 UNIT SQ DAILY, (Reported) Entered as Reported by: JOSELYN RONDON on 06/29/232308 Last Action: Edited Levofloxacin (Levofloxacin) 750 Mg Tablet, 750 MG PO DAILY, (Reported) Entered as Reported by: JOSELYN RONDON on 06/29/232308 Last Action: New Order Lisinopril/Hydrochlorothiazide (Lisinopril-Hctz 20-25 mg Tab) 20 Mg-25 Mg Tablet, 1 EACH PO DAILY, (Reported) Entered as Reported by: JOSELYN RONDON on 06/29/232308 Last Action: New Order Metronidazole (Metronidazole) 500 Mg Tablet, 500 MG PO TID, (Reported) Entered as Reported by: JOSELYN RONDON on 06/29/232308 Last Action: New Order Discontinued Medications Allopurinol (Zyloprim) 100 Mg Tab, 100 MG PO DAILY, (Reported) Discontinued Reason: No Longer Taking Entered as Reported by: NICK MCKINNON on 07/11/111309 Last Action: Discontinued Glyburide (Glyburide) 1.25 Mg Tablet, 1 EACH PO DAILY, (Reported) Discontinued Reason: No Longer Taking Entered as Reported by: NICK MCKINNON on 07/11/111309 Last Action: Discontinued Hctz/Lisinopril (Lisinopril-Hctz 10-12.5 Mg Tab) 1 Each Tablet, 1 EACH PO DAILY, (Reported) Discontinued Reason: No Longer Taking Entered as Reported by: NICK MCKINNON on 07/11/111309 Last Action: Discontinued Tramadol Hcl (Ultram) 50 Mg Tab, 1-2 TAB PO Q8HR PRN, (Reported) Discontinued Reason: No Longer Taking Entered as Reported by: NIKC MCKINNON on 07/11/111309 Last Action: Discontinued Exam Vital Signs Vital Signs Date Time Temp Pulse Resp B/P (MAP) Pulse Ox O2 Delivery O2 Flow Rate FiO2 06/30/23 10:00 107 164/104 (124) 96 Room Air 06/30/23 07:59 36.5 06/30/23 04:28 0.00 06/29/23 23:04 21 06/29/23 21:50 20 Physical Exam Gen: NAD, resting comfortably Neck: No bruits, no JVD Lungs: CTA IN THE LEFT LUNG FIELD. DIMINISHED AND COARSE BREATH SOUNDS FROM THE APEX TO THE MID LUNG ON THE RIGHT. no w-r-r CV: nl s1/s2; no murmurs gallops or rubs, tachycardic, regularly regular Abd: soft NT,ND, positive bowel sounds, no hepatosplenomegaly Ext: 2+ radial and DP pulses; no c-c; 1-2+ pitting edema in the left lower extremity. Mild erythema noted. Pulses intact. Labs Laboratory Tests Test 06/29/23 19:05 06/29/23 19:13 06/29/23 19:14 06/29/23 20:30 Range/Units White Blood Count 13.3 H 4.3-11.0 10^3/uL Red Blood Count 3.70 L 4.30-5.52 10^6/uL Hemoglobin 9.8 L 13.3-17.7 g/dL Hematocrit 33 L 40-54 % Mean Corpuscular Volume 89 80-99 fL Mean Corpuscular Hemoglobin 27 25-34 pg Mean Corpuscular Hemoglobin Concent 30 L 32-36 g/dL Red Cell Distribution Width 14.7 H 10.0-14.5 % Platelet Count 463 H 130-400 10^3/uL Mean Platelet Volume 8.3 L 9.0-12.2 fL Immature Granulocyte % (Auto) 1 % Neutrophils (%) (Auto) 71 42-75 % Lymphocytes (%) (Auto) 18 12-44 % Monocytes (%) (Auto) 7 0-12 % Eosinophils (%) (Auto) 3 0-10 % Basophils (%) (Auto) 0 0-10 % Neutrophils # (Auto) 9.5 H 1.8-7.8 10^3/uL Lymphocytes # (Auto) 2.4 1.0-4.0 10^3/uL Monocytes # (Auto) 0.9 0.0-1.0 10^3/uL Eosinophils # (Auto) 0.4 H 0.0-0.3 10^3/uL Basophils # (Auto) 0.1 0.0-0.1 10^3/uL Immature Granulocyte # (Auto) 0.1 0.0-0.1 10^3/uL Erythrocyte Sedimentation Rate 107 H 0-30 MM/HR Prothrombin Time 14.9 H 12.2-14.7 SEC INR Comment 1.2 0.8-1.4 Activated Partial Thromboplast Time 43 H 24-35 SEC D-Dimer 2.67 H 0.00-0.49 UG/ML Venous Blood pH 7.37 7.31-7.41 Venous Blood Partial Pressure CO2 46 40-52 MMHG Venous Blood HCO3 26 22-28 MMOL/L Sodium Level 139 135-145 MMOL/L Potassium Level 3.8 3.6-5.0 MMOL/L Chloride Level 106 98-107 MMOL/L Carbon Dioxide Level 23 21-32 MMOL/L Anion Gap 10 5-14 MMOL/L Blood Urea Nitrogen 11 7-18 MG/DL Creatinine 0.82 0.60-1.30 MG/DL Estimat Glomerular Filtration Rate 106 BUN/Creatinine Ratio 13 Glucose Level 152 H 70-105 MG/DL Calcium Level 9.5 8.5-10.1 MG/DL Corrected Calcium 10.2 H 8.5-10.1 MG/DL Magnesium Level 2.3 1.6-2.4 MG/DL Total Bilirubin 0.3 0.1-1.0 MG/DL Aspartate Amino Transf (AST/SGOT) 22 5-34 U/L Alanine Aminotransferase (ALT/SGPT) 15 0-55 U/L Alkaline Phosphatase 85 40-136 U/L Total Creatine Kinase 69 30-200 U/L Creatine Kinase MB 1.4 <6.6 NG/ML Myoglobin 49.4 10.0-92.0 NG/ML Troponin I 0.030 H <0.028 NG/ML C-Reactive Protein High Sensitivity 1.46 H 0.00-0.50 MG/DL B-Type Natriuretic Peptide 242.4 H <100.0 PG/ML Total Protein 8.8 H 6.4-8.2 GM/DL Albumin 3.1 L 3.2-4.5 GM/DL Beta-Hydroxybutyrate (Chem panel) 0.03 0.00-0.27 MMOL/L Influenza Type A (RT-PCR) Not Detected Not Detecte Influenza Type B (RT-PCR) Not Detected Not Detecte SARS-CoV-2 RNA (RT-PCR) Not Detected Not Detecte Lactic Acid Level 1.45 0.50-2.00 MMOL/L Urine Color YELLOW Urine Clarity CLEAR Urine pH 7.0 5-9 Urine Specific [place] 1.020 1.016-1.022 Urine Protein NEGATIVE NEGATIVE Urine Glucose (UA) NEGATIVE NEGATIVE Urine Ketones NEGATIVE NEGATIVE Urine Nitrite NEGATIVE NEGATIVE Urine Bilirubin NEGATIVE NEGATIVE Urine Urobilinogen 0.2 < = 1.0 MG/DL Urine Leukocyte Esterase NEGATIVE NEGATIVE Urine RBC (Auto) NEGATIVE NEGATIVE Urine RBC NONE /HPF Urine WBC RARE /HPF Urine Squamous Epithelial Cells RARE /HPF Urine Crystals NONE /LPF Urine Bacteria TRACE /HPF Urine Casts NONE /LPF Urine Mucus NEGATIVE /LPF Urine Culture Indicated NO Test 06/30/23 04:41 Range/Units White Blood Count 9.5 4.3-11.0 10^3/uL Red Blood Count 3.55 L 4.30-5.52 10^6/uL Hemoglobin 9.5 L 13.3-17.7 g/dL Hematocrit 31 L 40-54 % Mean Corpuscular Volume 87 80-99 fL Mean Corpuscular Hemoglobin 27 25-34 pg Mean Corpuscular Hemoglobin Concent 31 L 32-36 g/dL Red Cell Distribution Width 14.8 H 10.0-14.5 % Platelet Count 424 H 130-400 10^3/uL Mean Platelet Volume 8.4 L 9.0-12.2 fL Immature Granulocyte % (Auto) 1 % Neutrophils (%) (Auto) 68 42-75 % Lymphocytes (%) (Auto) 21 12-44 % Monocytes (%) (Auto) 6 0-12 % Eosinophils (%) (Auto) 3 0-10 % Basophils (%) (Auto) 0 0-10 % Neutrophils # (Auto) 6.5 1.8-7.8 10^3/uL Lymphocytes # (Auto) 2.0 1.0-4.0 10^3/uL Monocytes # (Auto) 0.6 0.0-1.0 10^3/uL Eosinophils # (Auto) 0.3 0.0-0.3 10^3/uL Basophils # (Auto) 0.0 0.0-0.1 10^3/uL Immature Granulocyte # (Auto) 0.1 0.0-0.1 10^3/uL Sodium Level 139 135-145 MMOL/L Potassium Level 3.7 3.6-5.0 MMOL/L Chloride Level 108 H 98-107 MMOL/L Carbon Dioxide Level 20 L 21-32 MMOL/L Anion Gap 11 5-14 MMOL/L Blood Urea Nitrogen 9 7-18 MG/DL Creatinine 0.77 0.60-1.30 MG/DL Estimat Glomerular Filtration Rate 108 BUN/Creatinine Ratio 12 Glucose Level 143 H 70-105 MG/DL Calcium Level 8.7 8.5-10.1 MG/DL Corrected Calcium 9.7 8.5-10.1 MG/DL Phosphorus Level 3.9 2.3-4.7 MG/DL Magnesium Level 2.2 1.6-2.4 MG/DL Total Bilirubin 0.3 0.1-1.0 MG/DL Aspartate Amino Transf (AST/SGOT) 19 5-34 U/L Alanine Aminotransferase (ALT/SGPT) 13 0-55 U/L Alkaline Phosphatase 86 40-136 U/L Troponin I 0.052 H <0.028 NG/ML Total Protein 7.8 6.4-8.2 GM/DL Albumin 2.7 L 3.2-4.5 GM/DL A/P-Cardiology Plan 53-year-old gentleman with a history of insulin-dependent diabetes, hypertension, gout who presented for evaluation of shortness of breath over the past 3 weeks. ##Left lower extremity edema: Patient found to have DVT. Currently on Lovenox. Spoke to patient's cousin, Anh who is a nurse. She preferred once at daily dosing for medications. We will transition patient to Xarelto 15 mg p.o. twice daily x21 days then 20 mg p.o. daily thereafter. First dose tonight. ##Diabetes: Check A1c which is currently pending. We will check a fasting lipid panel. ##NSTEMI, type II: Troponins mildly positive at 0.03-0.05. We will get a follow-up troponin in the a.m. We will treat patient medically for his cavitary pneumonia and consider stress test once patient's medical issues have resolved as an outpatient. In the interim start aspirin 81 mg p.o. daily and Crestor 10 mg p.o. nightly ##Hypertension: Blood pressures up to 160s over 100s today. We will start him back on his lisinopril 20/25 mg p.o. daily. Uptitrate medication as needed for target blood pressures 130s over 80s or today. ##Tachycardia: Likely secondary to infection. Recommend IV fluids for now. BNP only mildly elevated. Recommend echocardiogram prior to discharge. JAMAR RADER MD Jun 30, 2023 11:26
[2023-06-30] MEDS: NS IV 1000 ML 1,000 ML IV SCH (11:56)
--- NOTE | 2023-06-30 11:57 | Tele-ICU Progress Note ---
Subjective Date Seen by a Provider: Jun 30, 2023 Time Seen by a Provider: 11:57 Subjective/Events-last exam (Tele-ICU Physician , Progress Note ) Service provided via interactive audio and video telecommunications E-CARE system to a patient admitted to ICU bed in [facility]. Patient is seen today due to persistent need of ICU care Available chart/ vitals / labs / Images reviewed Video assessment done using teleICU camera, rest of exam as per RN Discussed with RN Events overnight : Afebrile hemodynamically stable Respiratory - I/O = Drips: Pressors- no Hospital course: (06.29) 53 y/o with syncope, sepsis PNA, pleural effusion and empyema versus posterior lung abscess A/P Syncope/ s/p fall - etiology ? 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 - will need to discuss - will need to be coordinated with AC plans - cont abx for now DM - ISS Lines : , (Central Line Necessity Reviewed) Cervantes: OG: Nutrition: Analgesia: Anxiety/ delirium VTE Prophylaxis: Stress Ulcer Prophylaxis: Plans in collaboration with bedside consultants and IM MDs. Discussed with RN to reach out if any questions or concerns Case and care daily discussed on multidisciplinary rounds ( RN, PharmD, Sales Representative Education Courses , Respiratory Therapy, fast food worker ) A total of _ minutes of critical care time was devoted to this patient today, required to treat and/or prevent further deterioration of critical care condition ( as above ) . I am remotely monitoring this patient from another state. I am unable to do the bedside exam, and history/physical and pertinent information is taken from other notes in the computer and bedside staff. Sepsis Event Evaluation Height, Weight, BMI Height: '" Weight: lbs. oz. kg; 29.73 BMI Method: Focused Exam Lactate Level 06/29/23 19:14: Lactic Acid Level 1.45 Time of Focused Exam: 20:45 Exam Exam Patient acknowledged, consented, and participated in this virtual visit which was conducted using real time audio/video Vital Signs Date Time Temp Pulse Resp B/P (MAP) Pulse Ox O2 Delivery O2 Flow Rate FiO2 06/30/23 10:00 107 164/104 (124) 96 Room Air 06/30/23 09:24 97 Room Air 06/30/23 09:00 97 113/100 (104) 97 Room Air 06/30/23 08:00 96 Room Air 06/30/23 08:00 97 96 Room Air 06/30/23 07:59 36.5 06/30/23 07:00 98 06/30/23 07:00 75 149/91 (110) 96 Room Air 06/30/23 06:00 78 155/95 (115) 94 Room Air 06/30/23 05:00 94 168/114 (132) 95 Room Air 06/30/23 04:28 96 Room Air 0.00 06/30/23 04:00 89 149/98 (115) 93 Room Air 06/30/23 04:00 36.4 06/30/23 03:00 97 156/93 (114) 95 Room Air 06/30/23 02:00 101 133/91 (105) 95 Room Air 06/30/23 01:00 100 06/30/23 01:00 98 132/74 (93) 95 Room Air 06/30/23 00:00 104 137/80 (99) 95 Room Air 06/29/23 23:59 96 Room Air 0.00 06/29/23 23:47 36.8 06/29/23 23:15 103 147/87 (107) 96 Room Air 06/29/23 23:04 99 Room Air 0.00 21 06/29/23 22:47 36.8 116 98 21 06/29/23 22:45 109 120/107 (111) 96 Room Air 06/29/23 22:30 99 152/79 (103) 97 Room Air 06/29/23 22:15 98 166/95 (118) 97 Room Air 06/29/23 22:08 104 06/29/23 22:00 37.2 100 179/102 (127) 97 Room Air 06/29/23 22:00 98 Room Air 06/29/23 21:50 105 20 167/101 98 Room Air 06/29/23 18:53 36.8 116 16 185/114 (137) 100 OxyMask I & O 06/30/23 07:00 Intake Total 2200 ml Output Total 1900 ml Balance 300 ml Height & Weight Height: '" Weight: lbs. oz. kg; 29.73 BMI Method: General Appearance: No Apparent Distress, WD/WN, Other (DOES NOT APPEAR ILL OR TO BE IN ANY DISCOMFORT OR DISTRESS. TALKS IN FULL SENTENCES --VERY PLEASANT AND TALKATIVE. ) Neck: Full Range of Motion, Normal Inspection, Non Tender, Supple Respiratory: No Accessory Muscle Use, No Respiratory Distress, Rales (RIGHT BASE) Cardiovascular: No JVD, Tachycardia Capillary Refill: Less Than 3 Seconds Extremity: Normal Capillary Refill, Normal Inspection, Normal Range of Motion, Non Tender, No Calf Tenderness, Pedal Edema (1+ BILATERALLY) Neurologic/Psychiatric: Alert, Oriented x3, No Motor/Sensory Deficits, Normal Mood/Affect, marketing director assisted living II-XII Norm as Tested Skin: Normal Color, Warm/Dry Results Lab Laboratory Tests 06/29/23 19:05 06/30/23 04:41 Assessment/Plan Assessment/Plan 1 LEVI RUBIO MD Jun 30, 2023 11:57
--- NOTE | 2023-06-30 12:22 | History & Physical ---
RUDYPRABHAKAR 06/30/23 1222: History of Present Illness History of Present Illness Reason for visit/HPI Patient is a 53-year-old male who arrived to the ED on 06/29 with CC of SOB, cough. He stated that he has been feeling slightly SOB since about 3 weeks ago, having a dry cough during that timeframe. He was seen at urgent care on 06/27, started on levaquin, felt his symptoms weren't improving so went back and prescribed flagyl. Yesterday morning he was in the shower when he fell, can't remember the fall, unsure if he passed out or just fell just remembers waking up on the floor. He has had decreased PO intake of food, fluids over the past 3 weeks. CXR showed RLL pneumonia with effusion. D-dimer was elevated at 2.67, left lower extremity noted to have some swelling, slight erythema. CTA was negative for PE, did show possible empyema or cavitating pneumonia. Initial troponin was elevated at 0.030, measured today at 0.52. While in the ED, he was started on IVF, meropenem and vancomycin. Imaging showed no acute damage from the fall. He reports that he feels well today, denies SOB, chest pain. WBC has decreased from 13.3 yesterday to 9.5 today. Tachycardic while in the room, in 90s, 100s. US showed DVT in the LLE this morning, given Lovenox. Has been hypertensive overnight, systolics in 150s-160s. No new complaints. Date of Admission Jun 29, 2023 at 21:51 I consulted on this patient on 06/30/23 12:14 Attending Physician [facility] Admitting Physician Admitting Physician: Digna Mcfarlane DO Attending Physician: Digna Mcfarlane DO Consult Allergies and Home Medications Allergies Coded Allergies: NKANo Known Allergies (Verified Allergy, Unknown, 01/19/06) Patient Home Medication List Empagliflozin (Jardiance) 10 Mg Tablet, 10 MG PO DAILY, (Reported) Entered as Reported by: JOSELYN RONDON on 06/29/23 6412 Last Action: New Order Insulin Aspart (Insulin Aspart Flexpen) 100 Unit/Ml (3 Ml) Insuln.pen, 8 UNIT SQ DAILY, (Reported) Entered as Reported by: JOSELYN RONDON on 06/29/232308 Last Action: Edited Insulin Degludec (Insulin Degludec Pen (U-100)) 100 Unit/Ml (3 Ml) Insuln.pen, 20 UNIT SQ DAILY, (Reported) Entered as Reported by: JOSELYN RONDON on 06/29/232308 Last Action: Edited Levofloxacin (Levofloxacin) 750 Mg Tablet, 750 MG PO DAILY, (Reported) Entered as Reported by: JOSELYN RONDON on 06/29/232308 Last Action: New Order Lisinopril/Hydrochlorothiazide (Lisinopril-Hctz 20-25 mg Tab) 20 Mg-25 Mg Tablet, 1 EACH PO DAILY, (Reported) Entered as Reported by: JOSELYN RONDON on 06/29/232308 Last Action: New Order Metronidazole (Metronidazole) 500 Mg Tablet, 500 MG PO TID, (Reported) Entered as Reported by: JOSELYN RONDON on 06/29/232308 Last Action: New Order Discontinued Medications Allopurinol (Zyloprim) 100 Mg Tab, 100 MG PO DAILY, (Reported) Discontinued Reason: No Longer Taking Entered as Reported by: NICK MCKINNON on 07/11/111309 Last Action: Discontinued Glyburide (Glyburide) 1.25 Mg Tablet, 1 EACH PO DAILY, (Reported) Discontinued Reason: No Longer Taking Entered as Reported by: NICK MCKINNON on 07/11/111309 Last Action: Discontinued Hctz/Lisinopril (Lisinopril-Hctz 10-12.5 Mg Tab) 1 Each Tablet, 1 EACH PO DAILY, (Reported) Discontinued Reason: No Longer Taking Entered as Reported by: NICK MCKINNON on 07/11/111309 Last Action: Discontinued Tramadol Hcl (Ultram) 50 Mg Tab, 1-2 TAB PO Q8HR PRN, (Reported) Discontinued Reason: No Longer Taking Entered as Reported by: NICK MCKINNON on 07/11/111309 Last Action: Discontinued Past Usdocal-Jbckyx-Usvfpc Hx Patient Social History Tobacco Use?: No Smoking Status: Never a Smoker Smokeless Tobacco Frequency: Never a User Use of E-Cig and/or Vaping dev: No Substance use?: No Alcohol Use?: Yes (1-2 beers per week) Alcohol type: Beer Alcohol Frequency: Once in a while Pt feels they are or have been: No Immunizations Up To Date First/Initial COVID19 Vaccinat: X2 Second COVID19 Vaccination Raul: X2 Tetanus Booster (TDap): Unknown Current Status Advance Directives: No Communicates: Verbally Primary Language: Vincentian Preferred Spoken Language: Vincentian Is interpretation needed?: No Sensory deficits: Vision impairment Implanted or Applied Medical D: None Past Medical History Surgeries: Tonsillectomy Hypertension Gout Blood Disorders: No Review of Systems Constitutional: No chills, No fever EENTM: No hearing loss, No blurred vision Respiratory: cough; No short of breath Cardiovascular: No chest pain; edema (LLE 2+) Gastrointestinal: No nausea (Reports intermittent nausea a few days ago, none currently), No vomiting (Reports one episode of vomiting a few days ago after coughing spell, no recent episodes) Genitourinary: No dysuria, No hematuria Musculoskeletal: No back pain, No neck pain Skin: No change in color, No change in hair/nails Psychiatric/Neurological: Denies Numbness, Denies Weakness Physical Exam Vital Signs Vital Signs - First Documented 06/29/23 06/29/23 06/29/23 18:53 22:47 23:04 Temp 36.8 Pulse 116 Resp 16 B/P (MAP) 185/114 (137) Pulse Ox 100 O2 Delivery OxyMask O2 Flow Rate 0.00 FiO2 21 Capillary Refill : Less Than 3 Seconds Height, Weight, BMI Height: '" Weight: lbs. oz. kg; 29.73 BMI Method: General Appearance: No Apparent Distress, WD/WN HEENT: PERRL/EOMI Neck: Non Tender, Supple Respiratory: Chest Non Tender, No Respiratory Distress, Crackles (RLL) Cardiovascular: No Murmur, Normal Peripheral Pulses, Tachycardia Gastrointestinal: Non Tender, Soft Rectal: Deferred Back: No Vertebral Tenderness Extremity: Normal Capillary Refill, Non Tender, Inflammation (slight erythema LLE), Pedal Edema (LLE) Neurologic/Psychiatric: Alert, Oriented x3 Skin: Normal Color, Warm/Dry Lymphatic: No Adenopathy Assessment/Plan Assessment and Plan Sepsis: Continue vancomycin, meropenem. Continue IVF RLL pneumonia: failed outpatient levaquin treatment, continue vancomycin, meropenem NSTEMI: Cardiology consulted, appreciate recs, repeat troponin in AM, ASA daily, rosuvastatin 20 mg daily DVT: given lovenox today, cardiology recommends switching to xarelto Possibly empyema: Surgery consulted, continue IV antibiotics HTN: systolics in 150s-160s overnight, cardiology recommends resuming home lisinopril SOB: supplemental O2, nebs if needed, currently reports no SOB DIGNA MCFARLANE DO 07/01/23 0508: History of Present Illness History of Present Illness Reason for visit/HPI Chief complaint: Shortness of breath with lung abscess HPI: This is a 53-year-old male who apparently receives his care at [facility] but was admitted to the local hospitalist service with worsening pneumonia and possible empyema. General surgery consulted along with cardiology for cardiac d ysfunction. Elevated D-dimer showed no evidence of PE on CT scan of the chest but left lower extremity DVT diagnosed on ultrasound. Date Seen by a Provider: Jun 30, 2023 Time Seen by a Provider: 10:00 Allergies and Home Medications Allergies Coded Allergies: NKANo Known Allergies (Verified Allergy, Unknown, 01/19/06) Patient Home Medication List Home Medication List Reviewed: Yes Empagliflozin (Jardiance) 10 Mg Tablet, 10 MG PO DAILY, (Reported) Entered as Reported by: JOSELYN RONDON on 06/29/232308 Last Action: New Order Insulin Aspart (Insulin Aspart Flexpen) 100 Unit/Ml (3 Ml) Insuln.pen, 8 UNIT SQ DAILY, (Reported) Entered as Reported by: JOSELYN RONDON on 06/29/232308 Last Action: Edited Insulin Degludec (Insulin Degludec Pen (U-100)) 100 Unit/Ml (3 Ml) Insuln.pen, 20 UNIT SQ DAILY, (Reported) Entered as Reported by: JOSELYN RONDON on 06/29/232308 Last Action: Edited Levofloxacin (Levofloxacin) 750 Mg Tablet, 750 MG PO DAILY, (Reported) Entered as Reported by: JOSELYN RONDON on 06/29/232308 Last Action: New Order Lisinopril/Hydrochlorothiazide (Lisinopril-Hctz 20-25 mg Tab) 20 Mg-25 Mg T ablet, 1 EACH PO DAILY, (Reported) Entered as Reported by: JOSELYN RONDON on 06/29/232308 Last Action: New Order Metronidazole (Metronidazole) 500 Mg Tablet, 500 MG PO TID, (Reported) Entered as Reported by: JOSELYN RONDON on 06/29/232308 Last Action: New Order Discontinued Medications Allopurinol (Zyloprim) 100 Mg Tab, 100 MG PO DAILY, (Reported) Discontinued Reason: No Longer Taking Entered as Reported by: NICK MCKINNON on 07/11/111309 Last Action: Discontinued Glyburide (Glyburide) 1.25 Mg Tablet, 1 EACH PO DAILY, (Reported) Discontinued Reason: No Longer Taking Entered as Reported by: NICK MCKINNON on 07/11/111309 Last Action: Discontinued Hctz/Lisinopril (Lisinopril-Hctz 10-12.5 Mg Tab) 1 Each Tablet, 1 EACH PO DAILY, (Reported) Discontinued Reason: No Longer Taking Entered as Reported by: NICK MCKINNON on 07/11/111309 Last Action: Discontinued Tramadol Hcl (Ultram) 50 Mg Tab, 1-2 TAB PO Q8HR PRN, (Reported) Discontinued Reason: No Longer Taking Entered as Reported by: NICK MCKINNON on 07/11/111309 Last Action: Discontinued Past Mhrbvjn-Elksak-Rnnzzz Hx Patient Social History Marrital Status: single Employed/Student: unemployed Smoking Status: Former Smoker Past Medical History High Cholesterol, Hypertension Review of Systems Constitutional: see HPI, weakness Respiratory: cough, dyspnea on exertion, short of breath Physical Exam General Appearance: No Apparent Distress, WD/WN, Chronically ill Respiratory: No Accessory Muscle Use, No Respiratory Distress, Crackles (RLL) Cardiovascular: Regular Rate, Rhythm Assessment/Plan Assessment and Plan Assessment: Sepsis Recurrent pneumonia with lung abscess NSTEMI Left lower extremity DVT acute Plan: IV antibiotics Anticoagulation General surgery consult Cardiology consult Problems: (1) Pneumonia Status: Acute (2) Failure of outpatient treatment Status: Acute Admission Diagnosis Admission Status: Inpatient Order (span 2 midnights) Reason for Inpatient Admission: sepsis Supervisory-Addendum Brief Verification & Attestation Participated in pt care: history, MDM, physical Personally performed: exam, history, MDM, supervision of care Care discussed with: Medical Student Procedures: n/a Results interpretation: Verified all documentation Verification and Attestation of Medical Student E/M Service A medical student performed and documented this service in my presence. I reviewed and verified all information documented by the medical student and made modifications to such information, when appropriate. I personally performed the physical exam and medical decision making. Digna Mcfarlane, Jul 01, 2023,05:08 PRABHAKAR GRANT Jun 30, 2023 12:22 DIGNA MCFARLANE DO Jul 01, 2023 05:08
--- NOTE | 2023-06-30 14:46 | Tele-ICU Progress Note ---
Progress Note Additional images were provided reviewed Image on 06/01/23 showed Right peripheral dense opacity ( about 10 cm image 06/08 - similar appearance on lateral view despite smaller infiltrate image 06/27- on lateral view seen new cavitary lesion replacing infiltrate - 9 cn anastasiia , with 3 cm fluid debth 06/30 - CT / cxr - confirmed cavitary lesion with similar appearance patient was placed on good coverage Merrem/vanco on admission also in fill AC for DVT one might consider to cont anaerobic coverage for few more days vs tansthoracic percutaneous catheter drainage can be performed under imaging guidance Discussed with Dr Soto , will await input from surgery Focused Exam Lactate Level 06/29/23 19:14: Lactic Acid Level 1.45 Height, Weight, BMI Height: '" Weight: lbs. oz. kg; 29.73 BMI Method: Time of Focused Exam: 20:45 LEVI RUBIO MD Jun 30, 2023 14:46
--- NOTE | 2023-06-30 17:26 | CONSULTATION REPORT ---
DATE OF SERVICE: 06/30/2023 ATTENDING CLINICAL INFORMATICS SPECIALIST: [facility] HISTORY OF PRESENT ILLNESS: The patient is a 53-year-old male who presented to the emergency department with worsening shortness of breath as well as a chronic cough, which has also worsened. He reports this as being a dry cough. He states that this began approximately 3 weeks ago and slowly worsened over time as well. He was seen at an urgent care and was started on Levaquin and Flagyl; however, this did not improve his respirations. He then underwent a chest x-ray, which showed a right lower lobe pneumonia with an effusion. He was also found to have an elevated D-dimer. He then underwent a CT arteriogram of the chest, which was negative for pulmonary embolism; however, he was found to have an extrapleural air fluid level consistent with a chronic infection, likely arising from continuous infection from a previous pneumonia. Ultrasonography of the bilateral lower extremities did show an extensive deep vein thrombosis of the left lower extremity, starting in the calf and extending into the proximal groin. The patient was started on Lovenox. A CT scan of the chest also did show atelectasis as well as a likely acute on chronic pneumonia. PAST MEDICAL HISTORY: Hypertension, pneumonia, diabetes. PAST SURGICAL HISTORY: Tonsillectomy. ALLERGIES: No known drug allergies. MEDICATIONS: Allopurinol 100 mg daily, glyburide 1.25 mg daily, hydrochlorothiazide/lisinopril 10/12.5 mg daily, tramadol 50 mg every 8 hours p.r.n. SOCIAL HISTORY: Negative smoke, social alcohol. FAMILY HISTORY: Noncontributory. VITAL SIGNS: Temperature 36.3, blood pressure 142/91, pulse 85, respirations 15, pulse ox 97% on room air. REVIEW OF SYSTEMS: Well-nourished male, currently in no acute distress. He is having some mild shortness of breath, especially on exertion. He does also have a chronic cough, no sputum production. No nausea or vomiting. No diarrhea or constipation. No fever, chills, no recent inadvertent weight loss. All other review of systems negative. PHYSICAL EXAMINATION: CHEST: Scattered wheezes and rhonchi as well as decreased bilateral basilar breath sounds. HEART: Regular. No murmurs. EXTREMITIES: No lower extremity edema. Negative Homans sign. HEENT: No scleral icterus. No cervical lymphadenopathy. ABDOMEN: Soft, nontender, nondistended. SKIN: Warm, dry. LABORATORY DATA: WBC 9.5, hemoglobin 9.5, hematocrit 31, platelets 424, BUN 9, creatinine 0.77. Troponin 0.052. ASSESSMENT AND PLAN: A 53-year-old male with acute on chronic parapneumonic process of the right lung base with an organized infection, which is extrapleural, with an air fluid level likely indicating some form of infection from proximal spread likely from a previous pneumonia. This does not appear to be a space occupying lesion or cause any significant compression on the lungs to decrease ventilation. RECOMMENDATIONS: To proceed with conservative therapy with IV antibiotics and if this does not decrease the size of the lesion, we would then recommend consulting interventional radiology to place a percutaneous drain for drainage. From our perspective, there is no contraindication to starting an oral anticoagulation as soon as possible due to the extensive left lower extremity deep vein thrombosis and the potential for pulmonary embolism as well as other thromboembolic events. Job ID: [id number] DocumentID: [id number] Dictated Date: 06/30/2023 16:54:17 Bi Technical Lead Date: 06/30/2023 17:24:00 Dictated By: LURDES ARVIZU MD
[2023-06-30] MEDS ORDERED: RT-ALBUTEROL SULF 2.5 MG/3 ML PRE-MIX VIAL INH PRN (20:15)
[2023-06-30] MEDS: ROSUVASTATIN 20 MG TABLET PO SCH (20:55)
[2023-06-30] MEDS: RIVAROXABAN 15 MG TABLET PO SCH (20:55)
[2023-07-01] MEDS: NS IV 1000 ML 1,000 ML IV SCH (00:24)
[2023-07-01] MEDS: MEROPENEM INJECTION 500 MG in NS (IVPB) 100 ML 100 ML IV SCH ×4 (03:31→20:33)
[2023-07-01 04:58] LABS: ABG BASE EXCESS -0.2 MMOL/L (-2.5-2.5); ABG OXYGEN SATURATION 99 % (94-100); ABG PCO2 43 MMHG (35-45); ABG PH 7.38 (7.37-7.43); ABG PO2 129 MMHG (79-93); ABG TCO2 25.7 MMOL/L (21.0-31.0)
[2023-07-01 04:59] LABS: ALLENS TEST YES-POS; INSPIRED O2 2L; VENTILATOR NO
[2023-07-01 05:14] LABS: BASOPHILS % (AUTO) 1 % (0-10); EOSINOPHILS # (AUTO) 0.4 10^3/uL (0.0-0.3); EOSINOPHILS % (AUTO) 5 % (0-10); HEMATOCRIT 31 % (40-54); HEMOGLOBIN 9.4 g/dL (13.3-17.7); LYMPHOCYTES # (AUTO) 1.8 10^3/uL (1.0-4.0); LYMPHOCYTES % (AUTO) 21 % (12-44); MEAN CORPUSCULAR HEMOGLOBIN 26 pg (25-34); MEAN CORPUSCULAR HGB CONC 30 g/dL (32-36); MEAN CORPUSCULAR VOLUME 86 fL (80-99); MEAN PLATELET VOLUME 8.4 fL (9.0-12.2); MONOCYTES # (AUTO) 0.6 10^3/uL (0.0-1.0); MONOCYTES % (AUTO) 7 % (0-12); NEUTROPHILS # (AUTO) 5.8 10^3/uL (1.8-7.8); NEUTROPHILS % (AUTO) 66 % (42-75); PLATELET COUNT 407 10^3/uL (130-400); WHITE BLOOD COUNT 8.7 10^3/uL (4.3-11.0)
[2023-07-01 05:23] LABS: ALBUMIN 2.6 GM/DL (3.2-4.5); CHLORIDE 108 MMOL/L (98-107); SODIUM 139 MMOL/L (135-145)
[2023-07-01 05:24] LABS: CALCIUM 8.5 MG/DL (8.5-10.1)
[2023-07-01 05:25] LABS: TRIGLYCERIDES 112 MG/DL (<150); VLDL CHOLESTEROL 22 MG/DL (5-40)
[2023-07-01 05:26] LABS: GLUCOSE 131 MG/DL (70-105); TOTAL PROTEIN 7.4 GM/DL (6.4-8.2)
[2023-07-01 05:27] LABS: CARBON DIOXIDE 21 MMOL/L (21-32)
[2023-07-01 05:28] LABS: BILIRUBIN,TOTAL 0.4 MG/DL (0.1-1.0)
[2023-07-01 05:29] LABS: PHOSPHORUS 4.2 MG/DL (2.3-4.7)
[2023-07-01 05:30] LABS: ALKALINE PHOSPHATASE 80 U/L (40-136); CHOLESTEROL 117 MG/DL (< 200); CREATININE SERUM 0.79 MG/DL (0.60-1.30); GFR ESTIMATED 107
[2023-07-01 05:31] LABS: BUN/CREATININE RATIO 9
[2023-07-01 05:32] LABS: HDL CHOLESTEROL 30 MG/DL (40-60); MAGNESIUM 2.3 MG/DL (1.6-2.4)
[2023-07-01 05:33] LABS: ALANINE AMINOTRANSFERASE 12 U/L (0-55)
[2023-07-01] MEDS: POTASSIUM CHLORIDE 20 MEQ TABLET PO SCH (05:36)
[2023-07-01] MEDS: POTASSIUM CL 10MEQ/50ML IVPB 50 ML IV SCH (05:36)
[2023-07-01] MEDS: MAGNESIUM 1 GM/100 ML IVPB 100 ML IV SCH (05:36)
[2023-07-01] MEDS: inSUlin ASPART 1 UNIT/0.01 ML (PER UNIT) SC SCH ×4 (05:36→19:50)
[2023-07-01] MEDS ORDERED: TROUGH ORDER-PHARMACY XX NR (07:00)
[2023-07-01 07:18] LABS: ALBUMIN 2.8 GM/DL (3.2-4.5); BILIRUBIN,TOTAL 0.4 MG/DL (0.1-1.0); CALCIUM 8.7 MG/DL (8.5-10.1); CREATININE SERUM 0.77 MG/DL (0.60-1.30); TOTAL PROTEIN 7.7 GM/DL (6.4-8.2)
[2023-07-01 07:25] LABS: VANCOMYCIN,TROUGH 20.1 UG/ML (10.0-20.0)
[2023-07-01] MEDS: SENNOSIDES 8.6 MG TABLET PO SCH ×2 (09:13→19:41)
[2023-07-01] MEDS: DOCUSATE SODIUM 100 MG CAPSULE PO SCH ×2 (09:13→19:42)
[2023-07-01] MEDS: RIVAROXABAN 15 MG TABLET PO SCH ×2 (09:24→18:24)
[2023-07-01] MEDS: ASPIRIN enteric coated 81MG TABLET PO SCH (09:24)
--- NOTE | 2023-07-01 09:32 | Diagnostic Imaging Report ---
INDICATION: Pneumonia, follow-up. TECHNIQUE: Single view chest 5:08 AM CORRELATION STUDY: 06/30/2023 FINDINGS: Heart size and mediastinum are prominent but stable. Vasculature slightly increased. Opacities in the perihilar and right basilar region persisting but overall improved. IMPRESSION: 1. Mild increased vascular congestion. 2. Airspace opacities right mid and lower lung enriquez do persist but overall appear improved and decreased from prior. Dictated by: Dictated on workstation # [id number]
[2023-07-01] MEDS ORDERED: LEVO750T PO (11:08)
[2023-07-01] MEDS ORDERED: EMPA25TA PO (11:08)
[2023-07-01] MEDS ORDERED: METR-145 PO (11:08)
[2023-07-01] MEDS ORDERED: PARO25TA16 PO (11:10)
--- NOTE | 2023-07-01 11:22 | Physical Therapy Progress Note ---
Therapy Progress Note PT observed patient up independently in his room. RN also reports patient is independent. No skilled PT indicated at this time. KURTIS ARCE PT Jul 01, 2023 11:22
--- NOTE | 2023-07-01 11:25 | Progress Note ---
Subjective Date Seen by a Provider: Jul 01, 2023 Time Seen by a Provider: 11:00 Subjective/Events-last exam doing well. no complaints. no LE edeme nor homans sign. no SOB nor fever/chills. Focused Exam Lactate Level 06/29/23 19:14: Lactic Acid Level 1.45 Time of Focused Exam: 20:45 Objective Exam Vital Signs Date Time Temp Pulse Resp B/P (MAP) Pulse Ox O2 Delivery O2 Flow Rate FiO2 07/01/23 11:00 89 152/92 (108) 94 Nasal Cannula 2.00 07/01/23 10:00 86 148/103 (126) 96 Nasal Cannula 2.00 07/01/23 09:00 95 155/103 (125) Nasal Cannula 2.00 07/01/23 08:10 96 Room Air 0.00 07/01/23 08:00 93 143/93 (114) Nasal Cannula 2.00 07/01/23 07:00 67 134/76 (97) Nasal Cannula 2.00 07/01/23 07:00 69 07/01/23 06:00 65 132/93 (106) Nasal Cannula 2.00 07/01/23 05:00 83 Nasal Cannula 2.00 07/01/23 04:00 67 184/98 (126) 94 Nasal Cannula 2.00 07/01/23 03:08 Room Air 07/01/23 03:00 111 135/105 (115) 93 Nasal Cannula 2.00 07/01/23 02:00 63 168/94 (118) 95 Nasal Cannula 2.00 07/01/23 01:00 90 136/93 (107) 95 Nasal Cannula 2.00 07/01/23 01:00 90 07/01/23 00:15 Nasal Cannula 2.00 07/01/23 00:00 90 152/104 (120) 97 Room Air 06/30/23 23:59 Room Air 06/30/23 23:00 90 170/105 (126) 98 Room Air 06/30/23 22:00 110 154/90 (111) 97 Room Air 06/30/23 21:00 96 183/112 (135) 95 Room Air 06/30/23 20:03 94 Room Air 06/30/23 20:00 101 146/99 (115) 95 Room Air 06/30/23 20:00 Room Air 06/30/23 19:59 36.3 108 94 21 06/30/23 19:00 36.5 100 133/76 (95) 93 Room Air 06/30/23 19:00 89 06/30/23 18:00 93 139/95 (110) 95 Room Air 06/30/23 17:00 113 174/95 (121) 100 Room Air 06/30/23 16:26 100 Room Air 06/30/23 16:00 85 142/91 (108) 97 Room Air 06/30/23 15:43 36.3 06/30/23 15:00 89 151/94 (113) 97 Room Air 06/30/23 14:00 93 137/94 (108) 97 Room Air 06/30/23 13:00 108 06/30/23 13:00 91 143/92 (109) 98 Room Air 06/30/23 12:16 98 Room Air 06/30/23 12:00 89 150/90 (110) 97 Room Air 06/30/23 11:59 36.9 I & O 07/01/23 07:00 Intake Total 2900 ml Output Total 9370 ml Balance -6470 ml Capillary Refill : Less Than 3 Seconds General Appearance: No Apparent Distress HEENT: PERRL/EOMI Neck: Full Range of Motion Respiratory: Chest Non Tender, Decreased Breath Sounds Cardiovascular: Regular Rate, Rhythm Gastrointestinal: normal bowel sounds, non tender, soft Extremity: Normal Capillary Refill, No Calf Tenderness Neurologic/Psychiatric: Alert, Oriented x3 Skin: Normal Color Lymphatic: No Adenopathy Results Lab Laboratory Tests 07/01/23 04:51: Blood Gas Puncture Site LR, Blood Gas Patient Temperature UNK, Arterial Blood pH 7.38, Arterial Blood Partial Pressure CO2 43, Arterial Blood Partial Pressure O2 129H, Arterial Blood HCO3 24, Arterial Blood Total CO2 25.7, Arterial Blood Oxygen Saturation 99, Arterial Blood Base Excess -0.2, Alfredo Test YES-POS, Blood Gas Ventilator Setting NO, Blood Gas Inspired Oxygen 2L 07/01/23 05:00: White Blood Count 8.7, Red Blood Count 3.59L, Hemoglobin 9.4L, Hematocrit 31L, Mean Corpuscular Volume 86, Mean Corpuscular Hemoglobin 26, Mean Corpuscular Hemoglobin Concent 30L, Red Cell Distribution Width 15.0H, Platelet Count 407H, Mean Platelet Volume 8.4L, Immature Granulocyte % (Auto) 1, Neutrophils (%) (Auto) 66, Lymphocytes (%) (Auto) 21, Monocytes (%) (Auto) 7, Eosinophils (%) (Auto) 5, Basophils (%) (Auto) 1, Neutrophils # (Auto) 5.8, Lymphocytes # (Auto) 1.8, Monocytes # (Auto) 0.6, Eosinophils # (Auto) 0.4H, Basophils # (Auto) 0.0, Immature Granulocyte # (Auto) 0.1, Sodium Level 139, Potassium Level 4.0, Chloride Level 108H, Carbon Dioxide Level 21, Anion Gap 10, Blood Urea Nitrogen 7, Creatinine 0.79, Estimat Glomerular Filtration Rate 107, BUN/Creatinine Ratio 9, Glucose Level 131H, Calcium Level 8.5, Corrected Calcium 9.6, Phosphorus Level 4.2, Magnesium Level 2.3, Total Bilirubin 0.4, Aspartate Amino Transf (AST/SGOT) 21, Alanine Aminotransferase (ALT/SGPT) 12, Alkaline Phosphatase 80, Troponin I < 0.028, Total Protein 7.4, Albumin 2.6L, Triglycerides Level 112, Cholesterol Level 117, LDL Cholesterol Direct 76, VLDL Cholesterol 22, HDL Mine sterol 30L 07/01/23 06:45: Sodium Level 140, Potassium Level 4.0, Chloride Level 108H, Carbon Dioxide Level 25, Anion Gap 7, Blood Urea Nitrogen 6L, Creatinine 0.77, Estimat Glomerular Filtration Rate 108, BUN/Creatinine Ratio 8, Glucose Level 128H, Calcium Level 8.7, Corrected Calcium 9.7, Total Bilirubin 0.4, Aspartate Amino Transf (AST/SGOT) 20, Alanine Aminotransferase (ALT/SGPT) 14, Alkaline Phosphatase 84, Total Protein 7.7, Albumin 2.8L, Vancomycin Level Trough 20.1H Microbiology 06/29/23 MRSA Screen - Final, Complete MRSA not isolated Assessment/Plan Assessment/Plan Assess & Plan/Chief Complaint right loculated organized chronic parapneumonia with left LE DVT. cont abx. do not recommend standard CT because fluid outside pleural space. if worsens then would recommend IR drainage with small pigtail cath. cont oral anticoag. Clinical Quality Measures DVT/VTE Risk/Contraindication: Contraindications-Mechi: Other *list below* Other: dvt LURDES ARVIZU MD Jul 01, 2023 11:25
[2023-07-01] MEDS ORDERED: TROUGH ORDER-PHARMACY XX ONE (12:00)
--- NOTE | 2023-07-01 12:11 | Progress Note - Cardiology ---
Cardiology SOAP Progress Note Subjective: Patient doing well today. Started on Xarelto yesterday. Bone is gone from 0.05 down to 0.028. Echocardiogram performed demonstrated an EF of 60 to 65%, grade 2 diastolic dysfunction, trace MR and TR with an RVSP of 36 mmHg. A1c 7.2. Blood pressures overnight 130s to 180s over 90s to 100s, although improved after initiation of antihypertensives. Objective: I&O/Vital Signs 07/01/23 07/01/23 07/01/23 07/01/23 00:15 01:00 01:00 02:00 Pulse 90 90 63 B/P (MAP) 136/93 (107) 168/94 (118) Pulse Ox 95 95 O2 Delivery Nasal Cannula Nasal Cannula Nasal Cannula O2 Flow Rate 2.00 2.00 2.00 07/01/23 07/01/23 07/01/23 07/01/23 03:00 03:08 04:00 05:00 Pulse 111 67 83 B/P (MAP) 135/105 (115) 184/98 (126) Pulse Ox 93 94 O2 Delivery Nasal Cannula Room Air Nasal Cannula Nasal Cannula O2 Flow Rate 2.00 2.00 2.00 07/01/23 07/01/23 07/01/23 07/01/23 06:00 07:00 07:00 08:00 Pulse 65 69 67 93 B/P (MAP) 132/93 (106) 134/76 (97) 143/93 (114) O2 Delivery Nasal Cannula Nasal Cannula Nasal Cannula O2 Flow Rate 2.00 2.00 2.00 07/01/23 07/01/23 07/01/23 07/01/23 08:10 09:00 10:00 11:00 Pulse 95 86 89 B/P (MAP) 155/103 (125) 148/103 (126) 152/92 (108) Pulse Ox 96 96 94 O2 Delivery Room Air Nasal Cannula Nasal Cannula Nasal Cannula O2 Flow Rate 0.00 2.00 2.00 2.00 07/01/23 00:00 Intake Total 1450 ml Output Total 4600 ml Balance -3150 ml Skin: normal color, warm/dry Results/Procedures: Labs Laboratory Tests 07/01/23 04:51: Blood Gas Puncture Site LR, Blood Gas Patient Temperature UNK, Arterial Blood pH 7.38, Arterial Blood Partial Pressure CO2 43, Arterial Blood Partial Pressure O2 129H, Arterial Blood HCO3 24, Arterial Blood Total CO2 25.7, Arterial Blood Oxygen Saturation 99, Arterial Blood Base Excess -0.2, Alfredo Test YES-POS, Blood Gas Ventilator Setting NO, Blood Gas Inspired Oxygen 2L 07/01/23 05:00: White Blood Count 8.7, Red Blood Count 3.59L, Hemoglobin 9.4L, Hematocrit 31L, Mean Corpuscular Volume 86, Mean Corpuscular Hemoglobin 26, Mean Corpuscular Hemoglobin Concent 30L, Red Cell Distribution Width 15.0H, Platelet Count 407H, Mean Platelet Volume 8.4L, Immature Granulocyte % (Auto) 1, Neutrophils (%) (Auto) 66, Lymphocytes (%) (Auto) 21, Monocytes (%) (Auto) 7, Eosinophils (%) (Auto) 5, Basophils (%) (Auto) 1, Neutrophils # (Auto) 5.8, Lymphocytes # (Auto) 1.8, Monocytes # (Auto) 0.6, Eosinophils # (Auto) 0.4H, Basophils # (Auto) 0.0, Immature Granulocyte # (Auto) 0.1, Sodium Level 139, Potassium Level 4.0, Chloride Level 108H, Carbon Dioxide Level 21, Anion Gap 10, Blood Urea Nitrogen 7, Creatinine 0.79, Estimat Glomerular Filtration Rate 107, BUN/Creatinine Ratio 9, Glucose Level 131H, Calcium Level 8.5, Corrected Calcium 9.6, Phosphorus Level 4.2, Magnesium Level 2.3, Total Bilirubin 0.4, Aspartate Amino Transf (AST/SGOT) 21, Alanine Aminotransferase (ALT/SGPT) 12, Alkaline Phosphatase 80, Troponin I < 0.028, Total Protein 7.4, Albumin 2.6L, Triglycerides Level 112, Cholesterol Level 117, LDL Cholesterol Direct 76, VLDL Cholesterol 22, HDL Cholesterol 30L 07/01/23 06:45: Sodium Level 140, Potassium Level 4.0, Chloride Level 108H, Carbon Dioxide Level 25, Anion Gap 7, Blood Urea Nitrogen 6L, Creatinine 0.77, Estimat Glomerular Filtration Rate 108, BUN/Creatinine Ratio 8, Glucose Level 128H, Calcium Level 8 .7, Corrected Calcium 9.7, Total Bilirubin 0.4, Aspartate Amino Transf (AST/SGOT) 20, Alanine Aminotransferase (ALT/SGPT) 14, Alkaline Phosphatase 84, Total Protein 7.7, Albumin 2.8L, Vancomycin Level Trough 20.1H Microbiology 06/29/23 MRSA Screen - Final, Complete MRSA not isolated Procedures Physical exam: Gen: NAD, resting comfortably Neck: No bruits, no JVD Lungs: CTA IN THE LEFT LUNG FIELD. DIMINISHED AND COARSE BREATH SOUNDS FROM THE APEX TO THE MID LUNG ON THE RIGHT. no w-r-r CV: nl s1/s2; no murmurs gallops or rubs, tachycardic, regularly regular Abd: soft NT,ND, positive bowel sounds, no hepatosplenomegaly Ext: 2+ radial and DP pulses; no c-c; 1-2+ pitting edema in the left lower extremity. Mild erythema noted. Pulses intact. A/P: Assessment: 53-year-old gentleman with a history of insulin-dependent diabetes, hypertension, gout who presented for evaluation of shortness of breath over the past 3 weeks. ##Left lower extremity edema: Patient found to have DVT. Transitioned to Xarelto. Doing well. No procedures planned. ##Diabetes: A1c of 7.2. We will check a fasting lipid panel. Last ##NSTEMI, type II: Troponins mildly positive at 0.03-0.05. We will get a follow-up troponin in the a.m. We will treat patient medically for his cavitary pneumonia and consider stress test once patient's medical issues have resolved as an outpatient. Continue aspirin 81 mg p.o. daily and Crestor 10 mg p.o. nightly ##Hypertension: Blood pressures up to 160s over 100s today. Improved after initiation of lisinopril 20/25 mg p.o. daily. Increase lisinopril to 40 mg daily. uptitrate medication as needed for target blood pressures 130s over 80s or today. ##Tachycardia: Likely secondary to infection. Recommend IV fluids for now. BNP only mildly elevated. Echocardiogram demonstrates normal LV RV size and function, grade 2 diastolic dysfunction, LVEF of 60 to 65%, trace MR and trace TR with an RVSP of 36 mmHg. ##Disposition: Continue with Xarelto for treatment of DVT. Uptitrate antihypertensive regimen and consider initiation of nifedipine 30 mg p.o. daily if blood pressures continue to be above target as of 130/80. Patient should follow-up with cardiology within 2 to 4 weeks postdischarge as an outpatient they will consider stress testing at that time. We will sign off for now. Please call back with additional questions JAMAR RADER MD Jul 01, 2023 12:11
--- NOTE | 2023-07-01 12:18 | Progress Note ---
PRABHAKAR GRANT 07/01/23 1217: Subjective Date Seen by a Provider: Jul 01, 2023 Time Seen by a Provider: 11:00 Subjective/Events-last exam Patient is seen laying comfortably in bed, no family at bedside. Patient reports that he is doing well today, no chest pain or SOB, states cough has improved as well, now only coughing on occasion. Troponin was negative this morning. E-ICU compared imaging to previous images, confirmed that consolidation seen is an abscess, not empyema. Was seen by general surgery last night, they recommended continuing with IV antibiotics, no intervention at this time. Echo showed an EF of 55-60%, grade 2 diastolic dysfunction, and PASP of 35-40. Patient has no other complaints, being transferred to fourth floor today. Review of Systems General: No Chills, No Night Sweats HEENT: No Visual Changes, No Eye Pain Pulmonary: No Dyspnea; Cough (improved) Cardiovascular: No: Chest Pain, Palpitations Gastrointestinal: No: Nausea, Vomiting Genitourinary: No Dysuria, No Hematuria Musculoskeletal: No: neck pain, back pain Neurological: No: Weakness, Numbness Focused Exam Lactate Level 06/29/23 19:14: Lactic Acid Level 1.45 Time of Focused Exam: 20:45 Objective Exam Last Set of Vital Signs Vital Signs Date Time Temp Pulse Resp B/P (MAP) Pulse Ox O2 Delivery O2 Flow Rate FiO2 07/01/23 12:00 96 141/85 (106) 95 Nasal Cannula 2.00 06/30/23 19:59 36.3 21 06/29/23 21:50 20 Capillary Refill : Less Than 3 Seconds I&O Intake and Output 07/01/23 00:00 Intake Total 3050 ml Output Total 8100 ml Balance -5050 ml Intake Oral 2450 ml IV Total 600 ml Output Urine Total 8100 ml General: Alert, Oriented X3 HEENT: Atraumatic, PERRLA Neck: Supple, No JVD Lungs: Other (rhonci RLL, slight decrease breath sounds RLL) Heart: No Murmurs, Other (tachy, 100s) Abdomen: Soft, No Tenderness Extremities: No Clubbing, No Cyanosis, Normal Pulses Skin: No Rashes, No Breakdown Neuro: Normal Speech, Sensation Intact Psych/Mental Status: Mental Status NL Results Lab Laboratory Tests 07/01/23 04:51: Blood Gas Puncture Site LR, Blood Gas Patient Temperature UNK, Arterial Blood pH 7.38, Arterial Blood Partial Pressure CO2 43, Arterial Blood Partial Pressure O2 129H, Arterial Blood HCO3 24, Arterial Blood Total CO2 25.7, Arterial Blood Oxygen Saturation 99, Arterial Blood Base Excess -0.2, Alfredo Test YES-POS, Blood Gas Ventilator Setting NO, Blood Gas Inspired Oxygen 2L 07/01/23 05:00: White Blood Count 8.7, Red Blood Count 3.59L, Hemoglobin 9.4L, Hematocrit 31L, Mean Corpuscular Volume 86, Mean Corpuscular Hemoglobin 26, Mean Corpuscular Hemoglobin Concent 30L, Red Cell Distribution Width 15.0H, Platelet Count 407H, Mean Platelet Volume 8.4L, Immature Granulocyte % (Auto) 1, Neutrophils (%) (Auto) 66, Lymphocytes (%) (Auto) 21, Monocytes (%) (Auto) 7, Eosinophils (%) (Auto) 5, Basophils (%) (Auto) 1, Neutrophils # (Auto) 5.8, Lymphocytes # (Auto) 1.8, Monocytes # (Auto) 0.6, Eosinophils # (Auto) 0.4H, Basophils # (Auto) 0.0, Immature Granulocyte # (Auto) 0.1, Sodium Level 139, Potassium Level 4.0, Chloride Level 108H, Carbon Dioxide Level 21, Anion Gap 10, Blood Urea Nitrogen 7, Creatinine 0.79, Estimat Glomerular Filtration Rate 107, BUN/Creatinine Ratio 9, Glucose Level 131H, Calcium Level 8.5, Corrected Calcium 9.6, Phosphorus Level 4.2, Magnesium Level 2.3, Total Bilirubin 0.4, Aspartate Amino Transf (AST/SGOT) 21, Alanine Aminotransferase (ALT/SGPT) 12, Alkaline Phosphatase 80, Troponin I < 0.028, Total Protein 7.4, Albumin 2.6L, Triglycerides Level 112, Cholesterol Level 117, LDL Cholesterol Direct 76, VLDL Cholesterol 22, HDL Cholesterol 30L 07/01/23 06:45: Sodium Level 140, Potassium Level 4.0, Chloride Level 108H, Carbon Dioxide Level 25, Anion Gap 7, Blood Urea Nitrogen 6L, Creatinine 0.77, Estimat Glomerular Filtration Rate 108, BUN/Creatinine Ratio 8, Glucose Level 128H, Calcium Level 8.7, Corrected Calcium 9.7, Total Bilirubin 0.4, Aspartate Amino Transf (AST/SGOT) 20, Alanine Aminotransferase (ALT/SGPT) 14, Alkaline Phosphatase 84, Total Protein 7.7, Albumin 2.8L, Vancomycin Level Trough 20.1H Microbiology 06/29/23 MRSA Screen - Final, Complete MRSA not isolated Assessment/Plan Assessment/Plan Assess & Plan/Chief Complaint Sepsis: continue Vancomycin, meropenem Recurrent pneumonia with abscess: failed outpatient levaquin, continue va ncomycin and meropenem NSTEMI: cardiology consulted, appreciate recs, continue ASA and rosuvastatin Acute DVT in LLE: Transitioned to xarelto New onset CHF: diastolic dysfunction shown on echo, Currently on HCTZ HTN: Continue lisinopril, nifedipine IDDM: SSI Pulmonary HTN: cardiology consulted SOB: resolved Clinical Quality Measures Admission Status Admission Dx Sepsis: Continue vancomycin, meropenem. Continue IVF RLL pneumonia: failed outpatient levaquin treatment, continue vancomycin, meropenem NSTEMI: Cardiology consulted, appreciate recs, repeat troponin in AM, ASA daily, rosuvastatin 20 mg daily DVT: given lovenox today, cardiology recommends switching to xarelto Possibly empyema: Surgery consulted, continue IV antibiotics HTN: systolics in 150s-160s overnight, cardiology recommends resuming home lisinopril SOB: supplemental O2, nebs if needed, currently reports no SOB DVT/VTE Risk/Contraindication: Contraindications-Mechi: Other *list below* Other: dvt DIGNA SOTO DO 07/02/23 0609: Subjective Subjective/Events-last exam Doing well Moving to 4th floor IV abx maintained Objective Exam General: Alert, Oriented X3, Cooperative, No Acute Distress Lungs: Other (rhonci RLL, slight decrease breath sounds RLL) Psych/Mental Status: Mental Status NL, Mood NL Assessment/Plan Assessment/Plan Assess & Plan/Chief Complaint Move to 4th floor IV abx Supervisory-Addendum Brief Verification & Attestation Participated in pt care: history, MDM, physical Personally performed: exam, history, MDM, supervision of care Care discussed with: Medical Student Procedures: n/a Results interpretation: Verified all documentation Verification and Attestation of Medical Student E/M Service A medical student performed and documented this service in my presence. I reviewed and verified all information documented by the medical student and made modifications to such information, when appropriate. I personally performed the physical exam and medical decision making. Digna Soto, Jul 02, 2023,06:08 PRABHAKAR GRANT Jul 01, 2023 12:17 DIGNA SOTO DO Jul 02, 2023 06:09
--- NOTE | 2023-07-01 13:00 | Tele-ICU Progress Note ---
Subjective Date Seen by a Provider: Jul 01, 2023 Time Seen by a Provider: 13:00 Subjective/Events-last exam (Tele-ICU Physician , Progress Note ) Service provided via interactive audio and video telecommunications E-CARE system to a patient admitted to ICU bed in [facility]. Patient is seen today due to persistent need of ICU care Available chart/ vitals / labs / Images reviewed Video assessment done using teleICU camera, rest of exam as per RN Discussed with RN Events overnight : Afebrile hemodynamically stable Respiratory - I/O = Drips: Pressors- no Hospital course: (06.29) 53 y/o with syncope, sepsis PNA, pleural effusion and empyema versus posterior lung abscess A/P Syncope/ s/p fall - etiology ? - no PE on CT , but -+ DVT -CTH and spine - no acute findings DVT on LEFT 06/2023 - partilly occlusive popliteal vein and on into the more central aspect of femoral vein - lovenox full dose for AC for now RIGHT thorax lesion - air and fluid ( small amount ) containing lesion , posteriorly , abutting fissure in upper postion of RLL ( of adjusting plura ) - Ling abscess vs located empyema vs resolving PNA - patient finished a course of levofloxacin STILL CLEANER Image on 06/01/23 showed Right peripheral dense opacity ( about 10 cm image 06/08 - similar appearance on lateral view despite smaller infiltrate image 06/27- on lateral view seen new cavitary lesion replacing infiltrate - 9 cn anastasiia , with 3 cm fluid debth 06/30 - CT / cxr - confirmed cavitary lesion with similar appearance patient was placed on good coverage Merrem/vanco on admission also in fill AC for DVT one might consider to cont anaerobic coverage for few more days vs tansthorac ic percutaneous catheter drainage can be performed under imaging guidance Discussed with Dr Soto , will await input from surgery- no images to compare ( I can not see any bronchus leading forward this lesion to obtain cx safely , possible CT guided approach can be done - but might be in upright position to be able to collect fluid - will need to be coordinated with AC plans - cont abx for now DM - ISS ECHO 06/30 EF 55% , RVSP 30 mm , gr II dst disfnc Lines : , (Central Line Necessity Reviewed) Cervantes: OG: Nutrition: Analgesia: Anxiety/ delirium VTE Prophylaxis: lovenox Stress Ulcer Prophylaxis: na Plans in collaboration with bedside consultants and IM MDs. Discussed with RN to reach out if any questions or concerns Case and care daily discussed on multidisciplinary rounds ( RN, PharmD, Mission Manager , Respiratory Therapy, drop pit worker ) A total of _20 minutes of critical care time was devoted to this patient today, required to treat and/or prevent further deterioration of critical care condition ( as above ) . I am remotely monitoring this patient from another state. I am unable to do the bedside exam, and history/physical and pertinent information is taken from other notes in the computer and bedside staff. Sepsis Event Evaluation Height, Weight, BMI Height: '" Weight: lbs. oz. kg; 28.10 BMI Method: Focused Exam Lactate Level 06/29/23 19:14: Lactic Acid Level 1.45 Time of Focused Exam: 20:45 Exam Exam Patient acknowledged, consented, and participated in this virtual visit which was conducted using real time audio/video Vital Signs Date Time Temp Pulse Resp B/P (MAP) Pulse Ox O2 Delivery O2 Flow Rate FiO2 07/01/23 12:00 96 141/85 (106) 95 Nasal Cannula 2.00 07/01/23 12:00 Room Air 07/01/23 11:00 89 152/92 (108) 94 Nasal Cannula 2.00 07/01/23 10:00 86 148/103 (126) 96 Nasal Cannula 2.00 07/01/23 09:00 95 155/103 (125) Nasal Cannula 2.00 07/01/23 08:10 96 Room Air 0.00 07/01/23 08:00 Room Air 07/01/23 08:00 93 143/93 (114) Nasal Cannula 2.00 07/01/23 07:00 67 134/76 (97) Nasal Cannula 2.00 07/01/23 07:00 69 07/01/23 06:00 65 132/93 (106) Nasal Cannula 2.00 07/01/23 05:00 83 Nasal Cannula 2.00 07/01/23 04:00 67 184/98 (126) 94 Nasal Cannula 2.00 07/01/23 03:08 Room Air 07/01/23 03:00 111 135/105 (115) 93 Nasal Cannula 2.00 07/01/23 02:00 63 168/94 (118) 95 Nasal Cannula 2.00 07/01/23 01:00 90 136/93 (107) 95 Nasal Cannula 2.00 07/01/23 01:00 90 07/01/23 00:15 Nasal Cannula 2.00 07/01/23 00:00 90 152/104 (120) 97 Room Air 06/30/23 23:59 Room Air 06/30/23 23:00 90 170/105 (126) 98 Room Air 06/30/23 22:00 110 154/90 (111) 97 Room Air 06/30/23 21:00 96 183/112 (135) 95 Room Air 06/30/23 20:03 94 Room Air 06/30/23 20:00 101 146/99 (115) 95 Room Air 06/30/23 20:00 Room Air 06/30/23 19:59 36.3 108 94 21 06/30/23 19:00 36.5 100 133/76 (95) 93 Room Air 06/30/23 19:00 89 06/30/23 18:00 93 139/95 (110) 95 Room Air 06/30/23 17:00 113 174/95 (121) 100 Room Air 06/30/23 16:26 100 Room Air 06/30/23 16:00 85 142/91 (108) 97 Room Air 06/30/23 15:43 36.3 06/30/23 15:00 89 151/94 (113) 97 Room Air 06/30/23 14:00 93 137/94 (108) 97 Room Air 06/30/23 13:00 108 06/30/23 13:00 91 143/92 (109) 98 Room Air I & O 07/01/23 06:59 Intake Total 2900 ml Output Total 9370 ml Balance -6470 ml Height & Weight Height: '" Weight: lbs. oz. kg; 28.10 BMI Method: General Appearance: No Apparent Distress HEENT: PERRL/EOMI Neck: Full Range of Motion Respiratory: Chest Non Tender, Decreased Breath Sounds Cardiovascular: Regular Rate, Rhythm Capillary Refill: Less Than 3 Seconds Gastrointestinal: normal bowel sounds, non tender, soft Extremity: Normal Capillary Refill, No Calf Tenderness Neurologic/Psychiatric: Alert, Oriented x3 Skin: Normal Color Lymphatic: No Adenopathy Results Lab Laboratory Tests 06/29/23 19:05 06/30/23 04:41 07/01/23 05:00 07/01/23 06:45 Assessment/Plan Assessment/Plan 1 LEVI RUBIO MD Jul 01, 2023 13:00
[2023-07-01 15:20] VITALS: BP 120/78
[2023-07-01 19:14] VITALS: BP 134/85
[2023-07-01] MEDS: ROSUVASTATIN 20 MG TABLET PO SCH (19:41)
[2023-07-01] MEDS: NIFEdipine Extended Release 30 MG TABLET PO SCH (19:41)
[2023-07-01 23:20] VITALS: BP 130/85
[2023-07-02] MEDS: MEROPENEM INJECTION 500 MG in NS (IVPB) 100 ML 100 ML IV SCH ×4 (02:57→20:13)
[2023-07-02 03:01] VITALS: BP 130/78
[2023-07-02] MEDS: RIVAROXABAN 15 MG TABLET PO SCH ×2 (05:43→18:07)
[2023-07-02] MEDS: inSUlin ASPART 1 UNIT/0.01 ML (PER UNIT) SC SCH ×4 (05:43→20:14)
[2023-07-02 05:52] LABS: BASOPHILS # (AUTO) 0.1 10^3/uL (0.0-0.1); BASOPHILS % (AUTO) 1 % (0-10); EOSINOPHILS # (AUTO) 0.4 10^3/uL (0.0-0.3); EOSINOPHILS % (AUTO) 5 % (0-10); HEMATOCRIT 35 % (40-54); HEMOGLOBIN 10.7 g/dL (13.3-17.7); LYMPHOCYTES # (AUTO) 1.7 10^3/uL (1.0-4.0); LYMPHOCYTES % (AUTO) 19 % (12-44); MEAN CORPUSCULAR HEMOGLOBIN 26 pg (25-34); MEAN CORPUSCULAR HGB CONC 31 g/dL (32-36); MEAN CORPUSCULAR VOLUME 86 fL (80-99); MEAN PLATELET VOLUME 8.5 fL (9.0-12.2); MONOCYTES # (AUTO) 0.6 10^3/uL (0.0-1.0); MONOCYTES % (AUTO) 7 % (0-12); NEUTROPHILS # (AUTO) 6.2 10^3/uL (1.8-7.8); NEUTROPHILS % (AUTO) 69 % (42-75); PLATELET COUNT 458 10^3/uL (130-400); WHITE BLOOD COUNT 8.9 10^3/uL (4.3-11.0)
[2023-07-02 06:11] LABS: ALBUMIN 2.9 GM/DL (3.2-4.5); BILIRUBIN,TOTAL 0.4 MG/DL (0.1-1.0); CREATININE SERUM 0.78 MG/DL (0.60-1.30); MAGNESIUM 2.4 MG/DL (1.6-2.4); POTASSIUM 3.9 MMOL/L (3.6-5.0); TOTAL PROTEIN 7.9 GM/DL (6.4-8.2)
[2023-07-02 07:31] VITALS: BP 115/69
[2023-07-02] MEDS: SENNOSIDES 8.6 MG TABLET PO SCH ×2 (09:04→19:22)
[2023-07-02] MEDS: NIFEdipine Extended Release 30 MG TABLET PO SCH ×2 (09:04→19:22)
[2023-07-02] MEDS: ASPIRIN enteric coated 81MG TABLET PO SCH (09:04)
[2023-07-02] MEDS: DOCUSATE SODIUM 100 MG CAPSULE PO SCH ×2 (09:04→19:22)
[2023-07-02 11:11] VITALS: BP 109/74
--- NOTE | 2023-07-02 11:58 | Progress Note - Hospitalist ---
ARELIS PLASCENCIA 07/02/23 1158: Subjective HPI/CC On Admission Date Seen by Provider: Jul 02, 2023 Subjective/Events-last exam Patient reports he is feeling better today and he has no acute complaints. He has a slight cough that he says has improved since yesterday and he denies coughing up any sputum. He reports he has been up moving in his room without any difficulties. He denies chest pain, SOB, fever/chills. He denies any leg pain or dizziness. Review of Systems General: No Chills HEENT: No Head Aches Pulmonary: No Dyspnea; Cough (occassional) Cardiovascular: No: Chest Pain, Palpitations Gastrointestinal: No: Nausea, Vomiting, Diarrhea, Constipation Genitourinary: No Dysuria Musculoskeletal: No: neck pain, leg pain Neurological: No: Numbness Focused Exam Lactate Level 06/29/23 19:14: Lactic Acid Level 1.45 Time of Focused Exam: 20:45 Objective Exam Vital Signs Vital Signs Date Time Temp Pulse Resp B/P (MAP) Pulse Ox O2 Delivery O2 Flow Rate FiO2 07/02/23 11:11 36.7 92 18 109/74 (86) 98 Room Air 07/02/23 07:57 0.00 06/30/23 19:59 21 Capillary Refill : Less Than 3 Seconds General Appearance: No Apparent Distress, WD/WN Neck: Normal Inspection Respiratory: Chest Non Tender, No Accessory Muscle Use, No Respiratory Distress, Decreased Breath Sounds (slight decrease RLL) Cardiovascular: Regular Rate, Rhythm, No Murmur, Normal Peripheral Pulses Gastrointestinal: Normal Bowel Sounds, Non Tender, Soft Extremity: No Calf Tenderness, Pedal Edema (1+ in L lower leg) Neurologic/Psychiatric: Alert, Oriented x3 Skin: Normal Color, Warm/Dry Results/Procedures Lab Laboratory Tests 07/02/23 05:40 Patient resulted labs reviewed. Assessment/Plan Assessment and Plan Assess & Plan/Chief Complaint Sepsis RLL pneumonia with lung abscess continue IV Vancomycin, meropenem NSTEMI Acute DVT in LLE Continue xarelto continue ASA and rosuvastatin cardiology consulted, appreciate recs HTN Continue lisinopril, nifedipine IDDM sliding scale insulin Clinical Quality Measures DVT/VTE Risk/Contraindication: Contraindications-Mechi: Other *list below* Other: dvt SHIKHA ZARAGOZA MD 07/02/23 8046: Subjective HPI/CC On Admission Time Seen by Provider: 11:00 Assessment/Plan Assessment and Plan Assess & Plan/Chief Complaint Continue antibiotics for recurrent pneumonia with lung abscess. Diagnosis/Problems Diagnosis/Problems (1) Sepsis Status: Acute (2) Pneumonia Status: Acute (3) Lung abscess Status: Acute Qualifiers: Qualified Codes: J85.1 - Abscess of lung with pneumonia (4) Acute DVT (deep venous thrombosis) Status: Acute Qualifiers: Qualified Codes: I82.412 - Acute embolism and thrombosis of left femoral vein Supervisory-Addendum Brief Verification & Attestation Participated in pt care: history, MDM, physical Personally performed: exam, history, MDM, supervision of care Care discussed with: Medical Student Procedures: n/a A medical student performed and documented this service in my presence. I reviewed and verified all information documented by the medical student and made modifications to such information, when appropriate. I personally performed the physical exam and medical decision making. ARELIS PLASCENCIA Jul 02, 2023 11:58 SHIKHA ZARAGOZA MD Jul 02, 2023 16:59
[2023-07-02 15:55] VITALS: BP 92/57
[2023-07-02 19:06] VITALS: BP 116/74
[2023-07-02] MEDS: ROSUVASTATIN 20 MG TABLET PO SCH (19:22)
[2023-07-02 23:35] VITALS: BP 114/77
[2023-07-03] VITALS (7 sets, daily range): BP systolic 94–113; BP diastolic 58–67
[2023-07-03] MEDS: MEROPENEM INJECTION 500 MG in NS (IVPB) 100 ML 100 ML IV SCH ×4 (02:50→20:09)
[2023-07-03] MEDS: inSUlin ASPART 1 UNIT/0.01 ML (PER UNIT) SC SCH ×4 (05:13→20:13)
[2023-07-03] MEDS: RIVAROXABAN 15 MG TABLET PO SCH ×2 (05:47→17:59)
[2023-07-03 06:04] LABS: BASOPHILS # (AUTO) 0.1 10^3/uL (0.0-0.1); BASOPHILS % (AUTO) 1 % (0-10); EOSINOPHILS # (AUTO) 0.5 10^3/uL (0.0-0.3); EOSINOPHILS % (AUTO) 6 % (0-10); HEMATOCRIT 35 % (40-54); HEMOGLOBIN 10.9 g/dL (13.3-17.7); LYMPHOCYTES % (AUTO) 22 % (12-44); MEAN CORPUSCULAR HEMOGLOBIN 27 pg (25-34); MEAN CORPUSCULAR HGB CONC 31 g/dL (32-36); MEAN CORPUSCULAR VOLUME 87 fL (80-99); MEAN PLATELET VOLUME 8.7 fL (9.0-12.2); MONOCYTES # (AUTO) 0.8 10^3/uL (0.0-1.0); MONOCYTES % (AUTO) 9 % (0-12); NEUTROPHILS # (AUTO) 5.7 10^3/uL (1.8-7.8); NEUTROPHILS % (AUTO) 62 % (42-75); PLATELET COUNT 474 10^3/uL (130-400); WHITE BLOOD COUNT 9.2 10^3/uL (4.3-11.0)
[2023-07-03 06:23] LABS: BILIRUBIN,TOTAL 0.4 MG/DL (0.1-1.0); CALCIUM 9.1 MG/DL (8.5-10.1); CREATININE SERUM 0.84 MG/DL (0.60-1.30); MAGNESIUM 2.4 MG/DL (1.6-2.4); POTASSIUM 4.1 MMOL/L (3.6-5.0); TOTAL PROTEIN 7.9 GM/DL (6.4-8.2)
[2023-07-03] MEDS: NIFEdipine Extended Release 30 MG TABLET PO SCH ×2 (08:45→20:12)
[2023-07-03] MEDS: DOCUSATE SODIUM 100 MG CAPSULE PO SCH ×2 (08:45→20:09)
[2023-07-03] MEDS: ASPIRIN enteric coated 81MG TABLET PO SCH (08:45)
[2023-07-03] MEDS: SENNOSIDES 8.6 MG TABLET PO SCH ×2 (08:46→20:09)
--- NOTE | 2023-07-03 14:09 | Progress Note - Hospitalist ---
ARELIS PLASCENCIA 07/03/23 1409: Subjective HPI/CC On Admission Date Seen by Provider: Jul 03, 2023 Time Seen by Provider: 09:45 Subjective/Events-last exam Patient says he is doing well and he has no acute complaints. His cough has improved significantly and he says he only coughs occasionally and he says he has no trouble breathing. He continues to walk around without any troubles. He denies fever, chills, chest pain, or shortness of breath. He denies abdominal pain, nausea, vomiting, or leg swelling. Review of Systems General: No Chills HEENT: No Head Aches Pulmonary: Cough (slight) Cardiovascular: No: Chest Pain, Palpitations, Edema Gastrointestinal: No: Nausea, Vomiting, Abdominal Pain Musculoskeletal: No: leg pain Neurological: No: Weakness, Numbness Focused Exam Time of Focused Exam: 20:45 Objective Exam Vital Signs Vital Signs Date Time Temp Pulse Resp B/P (MAP) Pulse Ox O2 Delivery O2 Flow Rate FiO2 07/03/23 11:13 36.6 85 17 101/61 (74) 98 Room Air 07/03/23 07:36 21 07/03/23 07:32 0.00 Capillary Refill : Less Than 3 Seconds General Appearance: No Apparent Distress, WD/WN Neck: Normal Inspection Respiratory: Chest Non Tender, Lungs Clear, No Accessory Muscle Use, No Respiratory Distress Cardiovascular: Regular Rate, Rhythm, No Edema, No Murmur, Normal Peripheral Pulses Gastrointestinal: Normal Bowel Sounds, Non Tender, Soft Extremity: Non Tender, No Calf Tenderness, No Pedal Edema Neurologic/Psychiatric: Alert, Oriented x3 Skin: Normal Color, Warm/Dry Results/Procedures Lab Laboratory Tests 07/03/23 05:06 Patient resulted labs reviewed. Assessment/Plan Assessment and Plan Assess & Plan/Chief Complaint Sepsis RLL pneumonia with lung abscess continue IV Vancomycin, meropenem NSTEMI Acute DVT in LLE Continue xarelto continue ASA and rosuvastatin cardiology consulted, appreciate recs HTN Continue lisinopril, nifedipine IDDM sliding scale insulin Clinical Quality Measures DVT/VTE Risk/Contraindication: Contraindications-Mechi: Other *list below* Other: dvt SHIKHA ZARAGOZA MD 07/03/23 1620: Subjective HPI/CC On Admission Time Seen by Provider: 12:00 Assessment/Plan Assessment and Plan Assess & Plan/Chief Complaint Continuing antibiotics. Diagnosis/Problems Diagnosis/Problems (1) Sepsis Status: Acute (2) Pneumonia Status: Acute (3) Lung abscess Status: Acute Qualifiers: Qualified Codes: J85.1 - Abscess of lung with pneumonia (4) Acute DVT (deep venous thrombosis) Status: Acute Qualifiers: Qualified Codes: I82.412 - Acute embolism and thrombosis of left femoral vein Supervisory-Addendum Brief Verification & Attestation Participated in pt care: history, MDM, physical Personally performed: exam, history, MDM, supervision of care Care discussed with: Medical Student Procedures: n/a A medical student performed and documented this service in my presence. I reviewed and verified all information documented by the medical student and made modifications to such information, when appropriate. I personally performed the physical exam and medical decision making. ARELIS PLASCENCIA Jul 03, 2023 14:09 SHIKHA ZARAGOZA MD Jul 03, 2023 16:20
--- NOTE | 2023-07-03 16:15 | Progress Note - Hospitalist ---
Subjective HPI/CC On Admission Date Seen by Provider: Jul 03, 2023 Time Seen by Provider: 12:00 Focused Exam Time of Focused Exam: 20:45 Objective Exam Vital Signs Vital Signs Date Time Temp Pulse Resp B/P (MAP) Pulse Ox O2 Delivery O2 Flow Rate FiO2 07/03/23 15:31 36.0 106 18 103/67 (79) 97 Room Air 07/03/23 07:36 21 07/03/23 07:32 0.00 Capillary Refill : Less Than 3 Seconds Results/Procedures Lab Laboratory Tests 07/03/23 05:06 Patient resulted labs reviewed. Assessment/Plan Assessment and Plan Assess & Plan/Chief Complaint Continue antibiotics for recurrent pneumonia with lung abscess. Critical Care Critically Ill Patient Diagnosis/Problems Diagnosis/Problems (1) Sepsis Status: Acute (2) Pneumonia Status: Acute (3) Lung abscess Status: Acute Qualifiers: Pulmonary abscess pneumonia presence: with pneumonia Laterality: right Lung location: unspecified part of lung Qualified Codes: J85.1 - Abscess of lung with pneumonia (4) Acute DVT (deep venous thrombosis) Status: Acute Qualifiers: DVT location: lower extremity Affected thrombotic vein of extremity: femoral Laterality: left Qualified Codes: I82.412 - Acute embolism and thrombosis of left femoral vein Clinical Quality Measures DVT/VTE Risk/Contraindication: Contraindications-Mechi: Other *list below* Other: dvt SHIKHA ZARAGOZA MD Jul 03, 2023 16:15
[2023-07-03] MEDS: ROSUVASTATIN 20 MG TABLET PO SCH (20:09)
[2023-07-04 03:23] VITALS: BP 103/60
[2023-07-04] MEDS: MEROPENEM INJECTION 500 MG in NS (IVPB) 100 ML 100 ML IV SCH ×3 (03:23→14:57)
[2023-07-04] MEDS: RIVAROXABAN 15 MG TABLET PO SCH (05:31)
[2023-07-04] MEDS: inSUlin ASPART 1 UNIT/0.01 ML (PER UNIT) SC SCH ×2 (05:33→11:33)
[2023-07-04 06:18] LABS: BASOPHILS # (AUTO) 0.1 10^3/uL (0.0-0.1); BASOPHILS % (AUTO) 1 % (0-10); EOSINOPHILS # (AUTO) 0.6 10^3/uL (0.0-0.3); EOSINOPHILS % (AUTO) 6 % (0-10); HEMATOCRIT 35 % (40-54); HEMOGLOBIN 10.8 g/dL (13.3-17.7); LYMPHOCYTES % (AUTO) 21 % (12-44); MEAN CORPUSCULAR HEMOGLOBIN 27 pg (25-34); MEAN CORPUSCULAR HGB CONC 31 g/dL (32-36); MEAN CORPUSCULAR VOLUME 87 fL (80-99); MEAN PLATELET VOLUME 8.5 fL (9.0-12.2); MONOCYTES # (AUTO) 0.9 10^3/uL (0.0-1.0); MONOCYTES % (AUTO) 9 % (0-12); NEUTROPHILS # (AUTO) 6.1 10^3/uL (1.8-7.8); NEUTROPHILS % (AUTO) 63 % (42-75); PLATELET COUNT 470 10^3/uL (130-400); WHITE BLOOD COUNT 9.7 10^3/uL (4.3-11.0)
[2023-07-04 06:46] LABS: BILIRUBIN,TOTAL 0.4 MG/DL (0.1-1.0); CREATININE SERUM 0.89 MG/DL (0.60-1.30); MAGNESIUM 2.3 MG/DL (1.6-2.4); POTASSIUM 4.3 MMOL/L (3.6-5.0); TOTAL PROTEIN 7.9 GM/DL (6.4-8.2)
[2023-07-04 07:08] VITALS: BP 93/52
[2023-07-04] MEDS: SENNOSIDES 8.6 MG TABLET PO SCH (08:57)
[2023-07-04] MEDS: ASPIRIN enteric coated 81MG TABLET PO SCH (08:57)
[2023-07-04] MEDS: DOCUSATE SODIUM 100 MG CAPSULE PO SCH (08:58)
[2023-07-04] MEDS: NIFEdipine Extended Release 30 MG TABLET PO SCH (08:59)
[2023-07-04] MEDS ORDERED: AMOX1TAB12 PO (10:51)
[2023-07-04] MEDS ORDERED: ROSU20TA73 PO (10:51)
[2023-07-04] MEDS ORDERED: RIVA20TA2 PO (10:51)
[2023-07-04] MEDS ORDERED: NIFE-25 PO (10:51)
[2023-07-04] MEDS ORDERED: RIVA15TA2 PO (10:51)
[2023-07-04] MEDS ORDERED: ASPI-1238 PO (10:51)
--- NOTE | 2023-07-04 10:52 | Discharge Summary ---
Discharge Summary Hospital Course Was the Problem List Reviewed?: Yes Problems/Dx: (1) Sepsis Status: Acute (2) Pneumonia Status: Acute (3) Lung abscess Status: Acute Qualifiers: Qualified Codes: J85.1 - Abscess of lung with pneumonia (4) Acute DVT (deep venous thrombosis) Status: Acute Qualifiers: Qualified Codes: I82.412 - Acute embolism and thrombosis of left femoral vein Hospital Course Date of Admission: Jun 29, 2023 at 21:51 Admission Diagnosis : Family Physician/Provider: [place] Date of Discharge: 07/04/23 Discharge Diagnosis: [ ] Hospital Course: Patient is a 53-year-old male who arrived to the ED on 06/29 with CC of SOB, cough. He stated that he has been feeling slightly SOB since about 3 weeks prior to admission, having a dry cough during that timeframe. He was seen at urgent care on 06/27, started on levaquin, felt his symptoms weren't improving so went back and prescribed flagyl. The day before admission, he was in the shower when he fell, can't remember the fall, unsure if he passed out or just fell just remembers waking up on the floor. He had decreased PO intake of food, fluids for 3 weeks before admission. CXR showed RLL pneumonia with effusion. D-dimer was elevated at 2.67, left lower extremity noted to have some swelling, slight erythema. CTA was negative for PE, did show possible empyema or cavitating pneumonia, that was confirmed to be cavitating pneumonia after comparing previous imaging. Imaging showed no acute damage from the fall. Patient was treated with vancomycin and meropenem during his stay, general surgery was consulted, recommended no intervention at this time and to keep treating with the IV antibiotics. Venous doppler showed an acute DVT in the LLE, was given lovenox and then transitioned to xarelto. Cardiology was consulted due to an elevated troponin, echo showed EF of 55-60%, grade 2 diastolic dysfunction and a PASP of 35-40. Patient was then started on ASA, rosuvastatin, and HCTZ. Patient is being discharged home later today with augmentin, ASA, rosuvastatin, and xarelto, instructed to follow up outpatient with PCP. PRABHAKAR GRANT Labs and Pending Lab Test: Laboratory Tests 07/04/23 05:57: White Blood Count 9.7, Red Blood Count 4.03L, Hemoglobin 10.8L, Hematocrit 35L, Mean Corpuscular Volume 87, Mean Corpuscular Hemoglobin 27, Mean Corpuscular Hemoglobin Concent 31L, Red Cell Distribution Width 15.9H, Platelet Count 470H, Mean Platelet Volume 8.5L, Immature Granulocyte % (Auto) 1, Neutrophils (%) (Auto) 63, Lymphocytes (%) (Auto) 21, Monocytes (%) (Auto) 9, Eosinophils (%) (Auto) 6, Basophils (%) (Auto) 1, Neutrophils # (Auto) 6.1, Lymphocytes # (Auto) 2.0, Monocytes # (Auto) 0.9, Eosinophils # (Auto) 0.6H, Basophils # (Auto) 0.1, Immature Granulocyte # (Auto) 0.1, Sodium Level 139, Potassium Level 4.3, Chloride Level 108H, Carbon Dioxide Level 26, Anion Gap 5, Blood Urea Nitrogen 12, Creatinine 0.89, Estimat Glomerular Filtration Rate 103, BUN/Creatinine Ratio 13, Glucose Level 139H, Calcium Level 9.0, Corrected Calcium 9.8, Magnesium Level 2.3, Total Bilirubin 0.4, Aspartate Amino Transf (AST/SGOT) 22, Alanine Aminotransferase (ALT/SGPT) 17, Alkaline Phosphatase 88, Total Protein 7.9, Albumin 3.0L Microbiology 06/29/23 MRSA Screen - Final, Complete MRSA not isolated Home Meds Active Amox Tr-K Clv 875-125 mg Tab (Amoxicillin/Potassium Clav) 875 Mg-125 Mg Tablet 1 Each PO BID Xarelto Tablet (Rivaroxaban) 20 Mg Tablet 20 Mg PO DAILY@1700 start AFTER 15mg PO BID for 21 days Aspirin EC (Aspirin) 81 Mg Tablet.dr 81 Mg PO DAILY Nifedipine ER (Nifedipine) 30 Mg Tab.er.24 30 Mg PO BID Rosuvastatin Calcium 20 Mg Tablet 20 Mg PO HS Xarelto Tablet (Rivaroxaban) 15 Mg Tablet 15 Mg PO BID@0700,1900 Reported Paroxetine ER (Paroxetine HCl) 25 Mg Tab.er.24h 25 Mg PO DAILY PRN Jardiance (Empagliflozin) 25 Mg Tablet 25 Mg PO DAILY Levofloxacin 750 Mg Tablet 750 Mg PO DAILY FILLED 06-27-2023 #04/22 DAY SUPPLY Metronidazole 500 Mg Tablet 500 Mg PO TID FILLED 06-28-2023 #06/05 DAY SUPPLY Lisinopril-Hctz 20-25 mg Tab (Lisinopril/Hydrochlorothiazide) 20 Mg-25 Mg Tablet 1 Each PO DAILY Insulin Degludec Pen (U-100) (Insulin Degludec) 100 Unit/Ml (3 Ml) Insuln.pen 20 Unit SQ DAILY Insulin Aspart Flexpen (Insulin Aspart) 100 Unit/Ml (3 Ml) Insuln.pen 8 Unit SQ DAILY Assessment/Pt Instructions PCP in 1 week Discharge Planning: <30 minutes discharge planning Discharge Instructions Discharge Diet: No Restrictions Discharge Physical Examination Vital Signs Vital Signs Date Time Temp Pulse Resp B/P (MAP) Pulse Ox O2 Delivery O2 Flow Rate FiO2 07/04/23 08:00 96 Room Air 0.00 07/04/23 07:08 36.2 80 14 93/52 (66) 07/03/23 07:36 21 General Appearance: No Apparent Distress, WD/WN, Chronically ill Respiratory: Lungs Clear, Normal Breath Sounds Cardiovascular: Regular Rate, Rhythm Neurologic/Psychiatric: Alert, Oriented x3 Allergies: Coded Allergies: NKANo Known Allergies (Verified Allergy, Unknown, 01/19/06) Discharge Summary Date of Admission Jun 29, 2023 at 21:51 Date of Discharge Discharge Date: Jul 04, 2023 Discharge Diagnosis (1) Sepsis Status: Acute (2) Pneumonia Status: Acute (3) Lung abscess Status: Acute Qualifiers: Qualified Codes: J85.1 - Abscess of lung with pneumonia (4) Acute DVT (deep venous thrombosis) Status: Acute Qualifiers: Qualified Codes: I82.412 - Acute embolism and thrombosis of left femoral vein Clinical Quality Measures DVT/VTE Risk/Contraindication: Contraindications-Mechi: Other *list below* Other: dvt ELICIA MCFARLANE DO Jul 04, 2023 10:52
--- NOTE | 2023-07-04 11:05 | Progress Note ---
PRABHAKAR GRANT 07/04/23 1105: Progress Note Patient is a 53-year-old male who arrived to the ED on 06/29 with CC of SOB, cough. He stated that he has been feeling slightly SOB since about 3 weeks prior to admission, having a dry cough during that timeframe. He was seen at urgent care on 06/27, started on levaquin, felt his symptoms weren't improving so went back and prescribed flagyl. The day before admission, he was in the shower when he fell, can't remember the fall, unsure if he passed out or just fell just remembers waking up on the floor. He had decreased PO intake of food, fluids for 3 weeks before admission. CXR showed RLL pneumonia with effusion. D-dimer was elevated at 2.67, left lower extremity noted to have some swelling, slight erythema. CTA was negative for PE, did show possible empyema or cavitating pneumonia, that was confirmed to be cavitating pneumonia after comparing previous imaging. Imaging showed no acute damage from the fall. Patient was treated with vancomycin and meropenem during his stay, general surgery was consulted, recommended no intervention at this time and to keep treating with the IV antibiotics. Venous doppler showed an acute DVT in the LLE, was given lovenox and then transitioned to xarelto. Cardiology was consulted due to an elevated troponin, echo showed EF of 55-60%, grade 2 diastolic dysfunction and a PASP of 35-40. Patient was then started on ASA, rosuvastatin, and HCTZ. Patient is being discharged home later today with augmentin, ASA, rosuvastatin, and xarelto, instructed to follow up outpatient with PCP. DIGNA SOTO DO 07/04/23 1944: Supervisory-Addendum Brief Verification & Attestation Participated in pt care: history, MDM, physical Personally performed: exam, history, MDM, supervision of care Care discussed with: Medical Student Procedures: n/a Results interpretation: Verified all documentation Verification and Attestation of Medical Student E/M Service A medical student performed and documented this service in my presence. I reviewed and verified all information documented by the medical student and made modifications to such information, when appropriate. I personally performed the physical exam and medical decision making. Digna Soto Jul 04, 2023,19:44 PRABHAKAR GRANT Jul 04, 2023 11:05 DIGNA SOTO DO Jul 04, 2023 19:44
[2023-07-04 11:23] VITALS: BP 100/59
--- NOTE | 2023-07-04 12:40 | Diagnostic Imaging Report ---
INDICATION: Pneumonia. COMPARISON: 07/01/2023 FINDINGS: Single frontal radiograph view of the chest was obtained and demonstrates focal consolidative opacity within the right midlung, which appears to be centered within the base of the right upper lobe. Patchy airspace opacities are also noted within the right lung base. Left lung remains clear. No large effusion or pneumothorax is seen. Cardiac silhouette and pulmonary vasculature are within normal limits. IMPRESSION: 1. Focal opacity within right perihilar region may correspond to pleural-based loculated air-fluid collection seen on previous CT. 2. More patchy airspace opacities are again noted within the right lung base consistent with pneumonia. Follow-up to resolution is advised. Dictated by: Dictated on workstation # [id number]
[2023-07-04 16:02] VITALS: BP 100/59
[2023-07-21] MEDS ORDERED: RIVAROXABAN 20 MG TABLET PO SCH (17:00)
== END 2023-07-04 16:00 | disposition home or self-care (01) | DRG 871 ==
LOC: EDUNIT# 18:41 → ER 18:46 → ICU 21:51 → 4TH 07-01 12:57
PROVIDERS: ADMIT Internal Medicine; ATTEND Internal Medicine
DX: A41.9 Sepsis, unspecified organism (principal); I21.A1 Myocardial infarction type 2; J85.1 Abscess of lung with pneumonia; I82.432 Acute embolism and thrombosis of left popliteal vein; E11.9 Type 2 diabetes mellitus without complications; M10.9 Gout, unspecified; S09.90XA Unspecified injury of head, initial encounter; Z79.4 Long term (current) use of insulin; Z79.84 Long term (current) use of oral hypoglycemic drugs; Z20.822 Contact with and (suspected) exposure to COVID-19; Z79.899 Other long term (current) drug therapy; J43.9 Emphysema, unspecified; Z87.891 Personal history of nicotine dependence; I50.9 Heart failure, unspecified; I11.0 Hypertensive heart disease with heart failure; I27.20 Pulmonary hypertension, unspecified
CPT/HCPCS: 36415; 36600; 70450; 71045; 71046; 71275; 72125; 74177; 80053; 80061; 80202; 81000; 82010; 82550; 82553; 82805; 83036; 83605; 83735; 83874; 83880; 84100; 84484; 85025; 85379; 85610; 85652; 85730; 86141; 87081; 87636; 93005; 93041; 93306; 93970; 94640; 94668; 94760